=== PATIENT | female | born 1970 | race Hispanic/Latino ===

== ENCOUNTER 2018-11-20 03:20 | Emergency (ER) | payer BC, OTHER, SELFPAY ==
[2018-11-20 04:16] LABS: Absolute Lymphocytes (CBC) 3.8 K/uL (0.7-4.9); Basophils % 0.6 % (0-1.3); Eosinophils % 5.4 % (0-4.4); Hematocrit 35.1 % (36.0-45.0); MPV 9.5 fL (7.6-11.3); Monocytes % 8.4 % (3.3-12.3); RBC Red Blood Cell Count 3.87 M/uL (3.86-4.86)
[2018-11-20 04:27] LABS: BUN Blood Urea Nitrogen 9 mg/dL (7-18); Bicarbonate 28 mmol/L (21-32); Glucose Level 118 mg/dL (74-106); Potassium 3.3 mmol/L (3.5-5.1); Sodium Level 141 mmol/L (136-145); Troponin (Emerg Dept Use Only) < 0.02 ng/mL (0.0-0.045)
--- NOTE | 2018-11-20 05:30 | EKG ---
Test Date: 2018-11-20 Test Time: 04:04:24 [employer] Bar Cashier: ANGIE MEASUREMENT RESULTS: Intervals: Rate: 71 VT: 174 QRSD: 96 QT: 386 QTc: 419 [place]: P: 54 VT: 174 QRS: 48 T: 47 INTERPRETIVE STATEMENTS: Normal sinus rhythm Normal ECG Compared to ECG 11/15/2014 15:44:06 Sinus tachycardia no longer present Electronically Signed On 11-20-18 05:29:23 CDT by Charly Sears
--- NOTE | 2018-11-20 05:32 | ER ---
Nurse's Notes [facility] Name: Cary Fortune Age: 48 yrs Sex: Female : 1970 Arrival Date: 11/20/2018 Time: 03:21 Bed 15 Private MD: Robel Guerra E Diagnosis: Dyspnea Presentation: 11/20 03:32 Presenting complaint: Patient states: increased SOB, increased fatigue X3days. pt ak1 stated she has increased her days/activity at the gym. no resp distress noted at this time. Transition of care: patient was not received from another setting of care. Onset of symptoms is unknown. Risk Assessment: Do you want to hurt yourself or someone else? Patient reports no desire to harm self or others. Initial Sepsis Screen: Does the patient meet any 2 criteria? No. Patient's initial sepsis screen is negative. Does the patient have a suspected source of infection? No. Patient's initial sepsis screen is negative. Care prior to arrival: None. 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 - Social history:: Smoking status: Patient/guardian denies using tobacco. - Ebola Screening: : No symptoms or risks identified at this time. Screenin:35 Abuse screen: Denies threats or abuse. Denies injuries from another. Nutritional ak1 screening: No deficits noted. Tuberculosis screening: No symptoms or risk factors identified. Fall Risk None identified. Assessment: 03:34 General: Appears in no apparent distress. Behavior is calm, cooperative, appropriate ea for age. Pain: Denies pain. Neuro: Level of Consciousness is awake, alert, obeys commands, Oriented to person, place, time. Cardiovascular: Patient's skin is warm and dry. Respiratory: Airway is patent Respiratory effort is even, unlabored, Respiratory pattern is regular, symmetrical, Breath sounds are clear Parent/caregiver reports the patient having shortness of breath. Derm: Skin is pink, warm \T\ dry. Musculoskeletal: Circulation, motion, and sensation intact. 03:35 General: Appears in no apparent distress. Pain: Denies pain. Neuro: No deficits noted. ak1 Respiratory: Airway is patent Trachea midline Respiratory effort is even, unlabored. GI: No signs and/or symptoms were reported involving the gastrointestinal system. : No signs and/or symptoms were reported regarding the genitourinary system. EENT: No signs and/or symptoms were reported regarding the EENT system. Derm: No signs and/or symptoms reported regarding the dermatologic system. Musculoskeletal: No signs and/or symptoms reported regarding the musculoskeletal system. 04:53 Reassessment: Patient and/or family updated on plan of care and expected duration. Pain ea level reassessed. Patient is alert, oriented x 3, equal unlabored respirations, skin warm/dry/pink. 05:16 Reassessment: Patient and/or family updated on plan of care and expected duration. Pain ea level reassessed. Patient is alert, oriented x 3, equal unlabored respirations, skin warm/dry/pink. 05:58 Reassessment: Patient and/or family updated on plan of care and expected duration. Pain ea level reassessed. Patient is alert, oriented x 3, equal unlabored respirations, skin warm/dry/pink. Discharge instruction given to patient, verbalized the understanding of instruction. Pt left ED ambulatory, tolerating well. Vital Signs: 03:34 BP 144 / 80; Pulse 80; Resp 16; Temp 97.8; Pulse Ox 99% on R/A; Weight 74.84 kg (R); ak1 Height 5 ft. 6 in. (167.64 cm) (R); Pain 0/10; 04:54 BP 120 / 75; Pulse 78; Resp 18; Pulse Ox 98% ; ea 05:50 BP 119 / 60; Pulse 80; Resp 18; Temp 97.8; Pulse Ox 98% ; ea 03:34 Body Mass Index 26.63 (74.84 kg, 167.64 cm) ak1 ED Course: 03:21 Patient arrived in ED. am2 03:21 Robel Guerra MD is Private Physician. am2 03:33 Triage completed. ak1 03:34 Sarah Benz, RN is Primary Nurse. ea 03:34 Arm band placed on Patient placed in an exam room, on a stretcher, on pulse oximetry, ak1 Patient notified of wait time. 03:35 Travis Caba MD is Attending Physician. gs 03:35 Patient has correct armband on for positive identification. Placed in gown. Bed in low ak1 position. Call light in reach. Side rails up X 1. Pulse ox on. NIBP on. 03:50 Inserted saline lock: 20 gauge in right antecubital area, using aseptic technique. cc3 Blood collected. 04:04 XRAY Chest (1 view) In Process Unspecified. EDMS 05:50 IV discontinued, intact, bleeding controlled, No redness/swelling at site. Pressure ea dressing applied. 05:59 No provider procedures requiring assistance completed. ea Administered Medications: No medications were administered Outcome: 05:31 Discharge ordered by . 05:59 Discharged to home ambulatory. ea 05:59 Condition: stable 05:59 Discharge instructions given to patient, Instructed on discharge instructions, follow up and referral plans. medication usage, Demonstrated understanding of instructions, follow-up care, medications, Prescriptions given X 1. 06:01 Patient left the ED. ea Signatures: Dispatcher [employer] EDMS Yeimy Hernandez RN BRAD ak1 Heydi Toledo am2 Sarah Benz, Travis Sandoval RN, ea, MD MD Kanwal Carias cc3 Corrections: (The following items were deleted from the chart) 06:01 06:00 BP 119 / 60; Pulse 80bpm; Resp 18bpm; Pulse Ox 98%; Temp 97.8F; ea ea
--- NOTE | 2018-11-20 05:32 | EDPHYS ---
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 - Social history:: Smoking status: Patient/guardian denies using tobacco. - Ebola Screening: : No symptoms or risks identified at this time. Vital Signs: 03:34 BP 144 / 80; Pulse 80; Resp 16; Temp 97.8; Pulse Ox 99% on R/A; Weight 74.84 kg (R); ak1 Height 5 ft. 6 in. (167.64 cm) (R); Pain 0/10; 04:54 BP 120 / 75; Pulse 78; Resp 18; Pulse Ox 98% ; ea 05:50 BP 119 / 60; Pulse 80; Resp 18; Temp 97.8; Pulse Ox 98% ; ea 03:34 Body Mass Index 26.63 (74.84 kg, 167.64 cm) ak1 MDM: 03:36 Patient medically screened. 11/20 03:46 Order name: Basic Metabolic Panel; Complete Time: 05:15 11/20 03:46 Order name: CBC with Diff; Complete Time: 05:15 11/20 03:46 Order name: Troponin (emerg Dept Use Only); Complete Time: 05:15 11/20 03:46 Order name: XRAY Chest (1 view) 11/20 03:46 Order name: EKG; Complete Time: 03:48 11/20 03:46 Order name: Cardiac monitoring; Complete Time: 04:07 11/20 03:46 Order name: EKG - Nurse/Tech; Complete Time: 04:07 11/20 03:46 Order name: IV Saline Lock; Complete Time: 04:07 11/20 03:46 Order name: Labs collected and sent; Complete Time: 04: 11/20 03:46 Order name: O2 Per Protocol; Complete Time: 04: 11/20 03:46 Order name: O2 Sat Monitoring; Complete Time: 04: Administered Medications: No medications were administered Disposition: 11/20/18 05:31 Discharged to Home. Impression: Dyspnea. - Condition is Stable. - Discharge Instructions: Shortness of Breath, [id number]. - Prescriptions for Albuterol Sulfate 90 mcg/actuation - inhale 1-2 puff by INHALATION route every 4-6 hours; 1 Inhaler. - Medication Reconciliation Form, Thank You Letter, Antibiotic Education, Prescription Opioid Use form. - Follow up: Private Physician; When: 2 - 3 days; Reason: Re-evaluation by your physician. Signatures: Dispatcher [employer] EDYeimy Lyman RN RN ak1 Sarah Benz RN RN ea Starr, Gregory, MD MD Corrections: (The following items were deleted from the chart) 06:01 05:31 11/20/2018 05:31 Discharged to Home. Impression: Dyspnea. Condition is Stable. ea Forms are Medication Reconciliation Form, Thank You Letter, Antibiotic Education, Prescription Opioid Use. Follow up: Private Physician; When: 2 - 3 days; Reason: Re-evaluation by your physician.
--- NOTE | 2018-11-20 08:11 | RAD REPORT ---
EXAM DESCRIPTION: RAD - Chest Single View - 11/20/2018 4:05 am CLINICAL HISTORY: Shortness of breath COMPARISON: November 2014 TECHNIQUE: AP portable chest image was obtained 0404 hours . FINDINGS: Lungs are clear. Heart and vasculature are normal. No measurable pleural effusion and no p neumothorax. No acute bony abnormality seen. No acute aortic findings suspected. IMPRESSION: No acute cardiopulmonary process.
== END 2018-11-20 06:01 | disposition home or self-care (01) ==
LOC: ER 03:20
DX: R06.00 Dyspnea, unspecified (principal)
CPT/HCPCS: 36415; 71045; 80048; 84484; 85025; 93005; 99284

== ENCOUNTER 2022-12-19 12:35 | Emergency (ER) | payer OTHER ==
[2022-12-19] MEDS ORDERED: DOXYCYCLINE 100 MG CAP PO ONE (13:12)
[2022-12-19] MEDS ORDERED: LIDOCAINE 1% MPF 5 ML VIAL ONE (13:12)
[2022-12-19] MEDS ORDERED: LIDOCAINE 1% W/EPI 1:100,000 50 ML MDV ONE (13:17)
[2022-12-19] MEDS ORDERED: MUPIROCIN 2% OINT 22GM TUBE TOP ONE (13:18)
--- NOTE | 2022-12-19 18:50 | EDPHYS ---
Physician Documentation [facility] Name: Cary Fortune Age: 52 yrs Sex: Female : 1970 Arrival Date: 12/19/2022 Time: 12:35 Bed 12 Private MD: Mukesh [facility] ED Physician Marvin Fernandes HPI: 12/19 12:58 This 52 yrs old Female presents to ER via Ambulatory with complaints of spider ruddy bite on neck. 12:58 The patient presents with an abscess of the neck, The patient presents with cellulitis ruddy of the neck, the patient presents with a swollen area of the neck. Description: The affected area is small, confluent, erythematous, fluctuant. Onset: The symptoms/episode began/occurred 5 day(s) ago. Possible cause(s): unknown, spider bite. Associated signs and symptoms: The patient has no apparent associated signs or symptoms. Modifying factors: the symptoms are alleviated by remaining still, the symptoms are aggravated by pressure, squeezing the lesion and expressing the contents. Severity of symptoms: At their worst the symptoms were mild, in the emergency department the symptoms are unchanged. The patient has not experienced similar symptoms in the past. 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 - Social history:: Smoking status: Patient denies any tobacco usage or history of. ROS: 12:59 Constitutional: Negative for fever, chills, and weight loss, Eyes: Negative for injury, ruddy pain, redness, and discharge, ENT: Negative for injury, pain, and discharge, Neck: Negative for injury, pain, and swelling, Cardiovascular: Negative for chest pain, palpitations, and edema, Respiratory: Negative for shortness of breath, cough, wheezing, and pleuritic chest pain, Abdomen/GI: Negative for abdominal pain, nausea, vomiting, diarrhea, and constipation, Back: Negative for injury and pain, : Negative for injury, bleeding, discharge, and swelling, MS/Extremity: Negative for injury and deformity, Neuro: Negative for headache, weakness, numbness, tingling, and seizure, Psych: Negative for depression, anxiety, suicide ideation, homicidal ideation, and hallucinations, Allergy/Immunology: Negative for hives, rash, and allergies, Endocrine: Negative for neck swelling, polydipsia, polyuria, polyphagia, and marked weight changes, Hematologic/Lymphatic: Negative for swollen nodes, abnormal bleeding, and unusual bruising. 12:59 Skin: Positive for abscess, erythema, swelling. Exam: 12:59 Constitutional: This is a well developed, well nourished patient who is awake, alert, ruddy and in no acute distress. Head/Face: Normocephalic, atraumatic. Eyes: Pupils equal round and reactive to light, extra-ocular motions intact. Lids and lashes normal. Conjunctiva and sclera are non-icteric and not injected. Cornea within normal limits. Periorbital areas with no swelling, redness, or edema. ENT: Nares patent. No nasal discharge, no septal abnormalities noted. Tympanic membranes are normal and external auditory canals are clear. Oropharynx with no redness, swelling, or masses, exudates, or evidence of obstruction, uvula midline. Mucous membranes moist. Chest/axilla: Normal chest wall appearance and motion. Nontender with no deformity. No lesions are appreciated. Cardiovascular: Regular rate and rhythm with a normal S1 and S2. No gallops, murmurs, or rubs. Normal PMI, no JVD. No pulse deficits. Respiratory: Lungs have equal breath sounds bilaterally, clear to auscultation and percussion. No rales, rhonchi or wheezes noted. No increased work of breathing, no retractions or nasal flaring. Abdomen/GI: Soft, non-tender, with normal bowel sounds. No distension or tympany. No guarding or rebound. No evidence of tenderness throughout. Back: No spinal tenderness. No costovertebral tenderness. Full range of motion. MS/ Extremity: Pulses equal, no cyanosis. Neurovascular intact. Full, normal range of motion. Neuro: Awake and alert, GCS 15, oriented to person, place, time, and situation. Cranial nerves II-XII grossly intact. Motor strength 5/5 in all extremities. Sensory grossly intact. Cerebellar exam normal. Normal gait. Psych: Awake, alert, with orientation to person, place and time. Behavior, mood, and affect are within normal limits. 12:59 Neck: External neck: abscess, that is small, of the right sternocleidomastoid, cellulitis, that is mild, crepitus, is not appreciated, ecchymosis, is not appreciated, erythema, that is mild, ROM/movement: is normal, no acute changes, Meningeal signs: are not present, Kernig's sign is negative, Brudzinski's sign is negative. Vital Signs: 12:55 BP 144 / 84; Pulse 74; Resp 18; Temp 98.2(O); Pulse Ox 100% on R/A; Weight 81.65 kg; mb9 Height 5 ft. 5 in. ; 13:30 BP 113 / 57; Pulse 75; Resp 18; Pulse Ox 100% on R/A; eh3 12:55 Body Mass Index 29.95 (81.65 kg, 165.1 cm) mb9 Procedures: 13:07 I \T\ D: Incision and drainage was performed for an abscess of the right Prepped with [facility] Betadine, Anesthetized with 5 ml's 1% Lidocaine w/ Epi. Incised with #11 blade. Drained small amount Packed with iodoform gauze, Dressing: non-Adherent dressing, the patient tolerated the procedure well. MDM: 12:40 Patient medically screened. [facility] 13:00 Differential diagnosis: abscess, cellulitis, insect bite. Data reviewed: vital signs, [facility] nurses notes, lab test result(s), EKG, radiologic studies. Consideration of Admission/Observation Escalation of care including admission/observation considered. I considered the following discharge prescriptions or medication management in the emergency department Medications were administered in the Emergency Department. See MAR. Test considered but Not performed: Labs: no labs. Historians other than the Patient: none. Care significantly affected by the following chronic conditions: mvp. Counseling: I had a detailed discussion with the patient and/or guardian regarding: the historical points, exam findings, and any diagnostic results supporting the discharge/admit diagnosis, the need for outpatient follow up, for definitive care, a family practitioner, a general surgeon. 12/19 12:56 Order name: Dressing - Wound; Complete Time: 13:49 [facility] 12/19 12:56 Order name: Gloves, Sterile; Complete Time: 13:06 [facility] 12/19 12:56 Order name: Setup Suture Tray; Complete Time: 13:06 [facility] Administered Medications: 13:05 Drug: Doxycycline PO 200 mg Route: PO; [facility] 13:50 Follow up: Response: No adverse reaction [facility] 13:20 Drug: Lidocaine-Epinephrine Infiltration -1%: (1:100,000) 5 ml {Note: administered by [facility] Dr. Fernandes.} Volume: 20 ml; Route: Infiltration; 13:50 Follow up: Response: No adverse reaction [facility] 13:49 Drug: Mupirocin Topical Ointment 2 % 1 application Route: Topical; Site: affected area; [facility] 13:50 Follow up: Response: No adverse reaction [facility] Disposition Summary: 12/19/22 13:05 Discharge Ordered Location: Home [facility] Problem: new ruddy Symptoms: have improved ruddy Condition: Stable [facility] Diagnosis - Cutaneous abscess of neck [facility] Followup: [facility] - With: Oscar Mayorga DO - When: 1 - 2 days - Reason: Recheck today's complaints, Continuance of care, Re-evaluation by your physician Followup: [facility] - With: Sukh Farias MD - When: 2 - 3 days - Reason: Recheck today's complaints, Re-evaluation by your physician Discharge Instructions: - Discharge Summary Sheet [facility] - Skin Abscess ruddy - Incision and Drainage ruddy - Skin Abscess, [id number] [facility] - Incision and Drainage, Care After [facility] Forms: - Medication Reconciliation Form [facility] - Thank You Letter [facility] - Antibiotic Education [facility] - Prescription Opioid Use [facility] - Patient Portal Instructions [facility] - Work release form mb9 Prescriptions: - Doxycycline Hyclate 100 mg Oral Tablet - take 1 tablet by ORAL route every 12 hours; 20 tablet; Refills: 0, Product [facility] Selection Permitted - Bactrim DS 800-160 mg Oral Tablet - take 1 tablet by ORAL route every 12 hours for 7 days; 14 tablet; Refills: 0, [facility] Product Selection Permitted - promethazine 25 mg Oral Tablet - take 1 tablet by ORAL route every 6 hours As needed; 20 tablet; Refills: 0, [facility] Product Selection Permitted Signatures: Marvin Fernandes MD MD cha Hall, Erin RN RN 3 Bethanie Yu RN RN mb9
--- NOTE | 2022-12-19 18:50 | ER ---
Nurse's Notes [facility] Name: Cary Fortune Age: 52 yrs Sex: Female : 1970 Arrival Date: 12/19/2022 Time: 12:35 Bed 12 Private MD: Oscar Mayorga Diagnosis: Cutaneous abscess of neck Presentation: 12/19 12:55 Chief complaint: Patient states: "I got bit by a spider on Monday. I went to urgent 9 care and they sent me home with an antibiotic, Sulfa, and it's not working". Coronavirus screen: Vaccine status: Patient reports receiving the 2nd dose of the covid vaccine. Ebola Screen: No symptoms or risks identified at this time. Initial Sepsis Screen: Does the patient meet any 2 criteria? No. Patient's initial sepsis screen is negative. Does the patient have a suspected source of infection? No. Patient's initial sepsis screen is negative. Risk Assessment: Do you want to hurt yourself or someone else? Patient reports no desire to harm self or others. Onset of symptoms was 2022. 12:55 Method Of Arrival: Ambulatory mb9 12:55 Acuity: CARISSA 4 mb9 Triage Assessment: 12:56 General: Appears in no apparent distress. Behavior is calm, cooperative. Pain: mb9 Complains of pain in neck. Neuro: Mantilla Agitation-Sedation Scale (RASS): 0 - Alert and Calm Level of Consciousness is awake, alert, obeys commands, Oriented to person, place, time, situation, Appropriate for age. Respiratory: Airway is patent Respiratory effort is even, unlabored, Respiratory pattern is regular, symmetrical. GI: Reports diarrhea, nausea. : No signs and/or symptoms were reported regarding the genitourinary system. Derm: Skin is pink, warm \\T\\ dry. Abscess located on right side of neck is quarter sized, is red, is raised. Musculoskeletal: Range of motion: intact in all extremities. 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 - Social history:: Smoking status: Patient denies any tobacco usage or history of. Screenin:00 [facility] ED Fall Risk Assessment (Adult) Score/Fall Risk Level 0 - 2 = Low Risk. Abuse eh3 screen: Denies threats or abuse. Denies injuries from another. Nutritional screening: No deficits noted. Tuberculosis screening: No symptoms or risk factors identified. Assessment: 13:00 General: Appears in no apparent distress. uncomfortable, Behavior is calm, cooperative, eh3 appropriate for age. Pain: Complains of pain in neck. Neuro: Level of Consciousness is awake, alert, obeys commands, Oriented to person, place, time, situation. Cardiovascular: Capillary refill < 3 seconds Patient's skin is warm and dry. Respiratory: Airway is patent Respiratory effort is even, unlabored, Respiratory pattern is regular, symmetrical. GI: Abdomen is round non-distended, Reports diarrhea, nausea. Derm: Skin is healthy with good turgor, Wound noted right sternocleidomastoid. Musculoskeletal: Circulation, motion, and sensation intact. Range of motion: intact in all extremities. Vital Signs: 12:55 BP 144 / 84; Pulse 74; Resp 18; Temp 98.2(O); Pulse Ox 100% on R/A; Weight 81.65 kg; mb9 Height 5 ft. 5 in. ; 13:30 BP 113 / 57; Pulse 75; Resp 18; Pulse Ox 100% on R/A; eh3 12:55 Body Mass Index 29.95 (81.65 kg, 165.1 cm) mb9 ED Course: 12:35 Patient arrived in ED. am2 12:35 Oscar Mayorga DO is Private Physician. am2 12:40 Marvin Fernandes MD is Attending Physician. ruddy 12:54 Arm band placed on. mb9 12:56 Triage completed. mb9 12:57 Hannah London, BRAD is Primary Nurse. eh3 13:00 Patient has correct armband on for positive identification. Bed in low position. Call eh3 light in reach. Side rails up X2. Adult w/ patient. Provided Education on: N/A. Pulse ox on. NIBP on. 13:04 Oscar Mayorga DO is Referral Physician. ruddy 13:04 Sukh Farias MD is Referral Physician. ruddy 13:40 Assist provider with I \\T\\ D: of an abscess on right sternocleidomastoid Set up I\\T\\D tray. 3 Performed by Marvin Fernandes MD Culture sent to lab. Wound packed. iodoform gauze, Dressing with Bactroban and bandaid Patient tolerated well. 13:53 Patient did not have IV access during this emergency room visit. 3 Administered Medications: 13:05 Drug: Doxycycline PO 200 mg Route: PO; 3 13:50 Follow up: Response: No adverse reaction [facility] 13:20 Drug: Lidocaine-Epinephrine Infiltration -1%: (1:100,000) 5 ml {Note: administered by [address] Dr[address].} Volume: 20 ml; Route: Infiltration; 13:50 Follow up: Response: No adverse reaction [facility] 13:49 Drug: Mupirocin Topical Ointment 2 % 1 application Route: Topical; Site: affected area; [facility] 13:50 Follow up: Response: No adverse reaction [facility] Medication: 13:54 VIS not applicable for this client. 3 Outcome: 13:05 Discharge ordered by MD. fox 13:53 Discharged to home ambulatory, with family. 3 13:53 Condition: stable 13:53 Discharge instructions given to patient, family, Instructed on discharge instructions, follow up and referral plans. medication usage, wound care, Demonstrated understanding of instructions, follow-up care, medications, wound care, Prescriptions given X 3. 13:54 Patient left the ED. 3 Signatures: Marvin Fernandes MD MD cha Moreno, Amanda am2 Hall, Erin RN RN 3 Bethanie Yu RN RN mb9
--- OUTSIDE RECORDS SUMMARY | 2022-12-19 18:55 | XMS REPORT | Continuity of Care Document ---
:1970 Author Organization [facility] t Address [address] [place] [address] [place] [id number] Care Team Providers Name Role Phone Oscar Mayorga Primary Care Physician Oscar Mayorga Attending Clinician Unavailable DIMAS PALACIO Attending Clinician Unavailable DIMAS PALACIO Attending Clinician Unavailable ANNIE ROSE Attending Clinician Unavailable JOHANNY CARRERA Attending Clinician Unavailable Johanny Carrera MD Attending Clinician Doctor Unassigned, [place] Attending Clinician Unavailable VALE SCHWAB Attending Clinician Unavailable VALE SCHWAB Attending Clinician Unavailable Annie Rose PA-C Attending Clinician 2, [facility] Lab Attending Clinician Unavailable PADMINI LANDEROS Attending Clinician Unavailable HANNAH HARLEY Attending Clinician Unavailable Hannah Harley MD Attending Clinician [phone] KIRBY TREVINO Attending Clinician Unavailable Kirby Gutiérrez Attending Clinician Lab, [facility] Attending Clinician Unavailable Ligia Garcia Attending Clinician LIGIA NUÑEZ Attending Clinician Unavailable Mickey Riojas MD Attending Clinician MICKEY RIOJAS Attending Clinician Unavailable Visit, [facility] Nurse Attending Clinician Unavailable 1, [facility] Cardio Fac Room Attending Clinician Unavailable Curtis KELLEY, Jeremy Nascimento Attending Clinician [facility] Cardio Fac Attending Clinician Unavailable VALE SCHWAB Admitting Clinician Unavailable ANNIE ROSE Admitting Clinician Unavailable KIRBY TREVINO Admitting Clinician Unavailable Payers Payer Name Policy Type Policy Number Effective Date Expiration Date Arsenio PANTOJA [id number] 2022 00:00:00 Problems Condition Condition Condition Status Onset Resolution Last Treating Co mments Source Name Details Category Date Date Treatment Clinician Date Encounter Encounter Disease Active Overview: Univers for for 10-27 Formattin ity of screening screening 00:00: g of [place] colonoscop colonoscop 00 note Me dical y y might be Branch different from the original. 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 (mitral (mitral 06-25 ity of valve valve 00:00: [place] prolapse) prolapse) 00 [facility] Branch Chest Chest Disease Active 2015-06 Univers pain, pain, 06-25 ity of unspecifie unspecifie 00:[place] d d 00 Medical Branch Allergies, Adverse Reactions, Alerts Allergy Allergy Status Severity Reaction(s) Onset Inactive Treating Comm ents Source Name Type Date Date Clinician PENICILL DRUG Active Med Hives Univers IUM INGREDI 6-26 ity of NOTATUM 00:00: [place] ALLERGEN 00 Medical IC Branch EXTRACT Penicill Drug Active Hives Univers ium Allergy 6-26 ity of Notatum 00:00: [place] Allergen 00 Medical ic Branch Extract PENICILL DRUG Active Hives Univers IN INGREDI 5-15 ity of 00:00: [place] 00 Medical Branch Penicill Propensi Active Swelling Univ ers in ty to 5-15 ity of adverse 00:00: [place] reaction 00 Medical s Branch NO KNOWN Drug Active Univers ALLERGIE Class ity of S [facility] Social History Social Habit Start Date Stop Date Quantity Comments Source Gender identity Universit y of [facility] Sexual orientation Univer bethel [facility] Alcohol intake 2022-12-04 2022-12-04 .29 /d University of 00:00:00 00:00:00 [facility] History of Social 2022-12-02 2022-12-02 Univers ity of function 00:00:00 00:00:00 [facility] Exposure to 2022-10-17 2022-10-27 Not sure [facility] SARS-CoV-2 (event) 00:00:00 08:32:00 [facility] Alcohol Comment 2022-04-12 2022-04-12 socially Universit y of 00:00:00 00:00:00 [facility] Tobacco use and 2019-08-13 2019-08-13 Never used Universit y of exposure 00:00:00 00:00:00 [facility] Sex Ass[birth year] At [birth year] Universit y of 00:00:00 00:00:00 [facility] Smoking Status Start Date Stop Date Source Never smoked tobacco [facility] Medications Ordered Filled Start Stop Current Ordering Indication Dosage Frequency Signature Comments Components Source Medication Medication Date Date Medication? Clinician (SIG) Name Name ondansetron 2022- No 4mg 4 mg, Univ ers (ZOFRAN-ODT 12-15 Oral, ity of ) 04:45: 04:04 ONCE, 1 [place] disintegrat 00 :00 dose, On Medi yenny ing tablet Wed Branch 4 mg 12/14/22 at 2345, Routine sulfamethox 2022- No 1{tbl} 1 tablet, Univers azole-trime 12-15 Oral, ONCE i ty of thoprim 04:45: 04:04 NOW, 1 [place] (BACTRIM 00 :00 dose, On Medical DS) 800-160 Wed Branch mg per 12/14/22 at tablet 1 2345, tablet SLIM
Re ason for Anti-Infec tive: Documented Infection< br>Documen kellee Infection Site: Skin / Soft Tissue
Duration of Therapy: Other (see Comments) sulfamethox Yes [id number] 1{tbl} Take 1 Univers azole-trime 7-12 tablet by ity of thoprim 00:00: mouth [place] 800-160 mg 00 every 12 Medic al per tablet (twelve) Branc h hours. ibuprofen Yes [id number] 800mg Take 1 Univers 800 mg 7-12 tablet by ity of tablet 00:00: mouth [place] 00 every 8 Medical (eight) Branch hours as needed for Pain (scale 4-6). ondansetron 0 Yes [id number] 4mg Take 1 Univers (ZOFRAN) 4 7-12 tablet by ity of mg tablet 00:00: mouth [place] 00 every 8 Medical (eight) Branch hours as needed for Nausea and Vomiting (N/V). water for 2022- No PRN, Univers irrigation 12-02 Starting ity of irrigation 12:37: 13:24 on [place] solution 00 :47 12/02/22 at Medic al 0737, Branch Until Mon12/02/22 at 0824, Routine, Intra-op simethicone 2022- No PRN, Unive rs (GAS RELIEF 12-02 Starting ity of (SIMETHICON 12:34: 13:24 on Mon [place] as E)) 40 00 :47 12/02/22 at Medical mg/0.6 mL 0734, Branch drops Until Mon12/02/22 at 0824, Routine, Intra-op lactated 2022- No 1000mL at 42 Unive rs ringers IV 12-02 06-30 mL/hr, ity of infusion 11:30: 11:47 1,000 mL, [place] 1,000 mL 00 :00 IV Medical Infusion, Branch ONCE, 1 dose, On Mon12/02/22 at 0630, Routine, DSU Pre-op lactated 2022-0 2022- No 1000mL at 42 Unive rs ringers IV 12-02 06-30 mL/hr, ity of infusion 11:30: 11:47 1,000 mL, [place] 1,000 mL 00 :00 IV Medical Infusion, Branch ONCE, 1 dose, On Mon12/02/22 at 0630, Routine, DSU Pre-op famotidine 2022-0 Yes 20mg Take 1 Unive rs 20 mg 6-30 tablet by ity of tablet 09:21: mouth as [place] 13 needed. Medical Branch fexofenadin 2022-0 Yes 180mg Take 1 Uni vers e 180 mg 6-30 tablet by ity of tablet 09:21: mouth as [place] 13 needed. Medical Branch famotidine 2022-0 Yes 20mg Take 1 Unive rs 20 mg 6-30 tablet by ity of tablet 09:21: mouth as [place] 13 needed. Medical Branch fexofenadin 3-0 Yes 180mg Take 1 Uni vers e 180 mg 6-30 tablet by ity of tablet 09:21: mouth as [place] 13 needed. Medical Branch famotidine 3-0 Yes 20mg Take 1 Unive rs 20 mg 6-30 tablet by ity of tablet 09:21: mouth as [place] 13 needed. Medical Branch fexofenadin 3-0 Yes 180mg Take 1 Uni vers e 180 mg 6-30 tablet by ity of tablet 09:21: mouth as [place] 13 needed. Medical Branch famotidine 3-0 Yes 20mg Take 1 Unive rs 20 mg 6-30 tablet by ity of tablet 09:21: mouth as [place] 13 needed. Medical Branch fexofenadin 3-0 Yes 180mg Take 1 Uni vers e 180 mg 6-30 tablet by ity of tablet 09:21: mouth as [place] 13 needed. Medical Branch famotidine 3-0 Yes 20mg Take 1 Unive rs 20 mg 6-30 tablet by ity of tablet 09:21: mouth as [place] 13 needed. Medical Branch fexofenadin 2022-0 Yes 180mg Take 1 Uni vers e 180 mg 6-30 tablet by ity of tablet 09:21: mouth as [place] 13 needed. Medical Branch fexofenadin 3-0 Yes 180mg Take 1 Uni vers e 180 mg 6-26 tablet by ity of tablet 12:00: mouth as [place] 16 needed. Medical Branch famotidine 3-0 Yes 20mg Take 1 Unive rs 20 mg 6-26 tablet by ity of tablet 12:00: mouth as [place] 15 needed. Medical Branch EPINEPHrine 2022-0 Yes .3mg 0.3 mL by U nivers 0.3 mg/0.3 6-07 Intramuscu ity of mL 00:00: lar route [place] injection 00 as needed. Medi yenny Branch EPINEPHrine 3-0 Yes .3mg 0.3 mL by U nivers 0.3 mg/0.3 6-07 Intramuscu ity of mL 00:00: lar route [place] injection 00 as needed. Medi yenny Branch EPINEPHrine 3-0 Yes .3mg 0.3 mL by U nivers 0.3 mg/0.3 6-07 Intramuscu ity of mL 00:00: lar route [place] injection 00 as needed. [facility] yenny Branch EPINEPHrine 0 Yes .3mg 0.3 mL by U nivers 0.3 mg/0.3 6-07 Intramuscu ity of mL 00:00: lar route [place] injection 00 as needed. Medi yenny Branch EPINEPHrine 0 Yes .3mg 0.3 mL by U nivers 0.3 mg/0.3 6-07 Intramuscu ity of mL 00:00: lar route [place] injection 00 as needed. [facility] yenny Branch EPINEPHrine 0 Yes .3mg 0.3 mL by U nivers 0.3 mg/0.3 6-07 Intramuscu ity of mL 00:00: lar route [place] injection 00 as needed. [facility] yenny Branch fluticasone Yes 2{spray Use 2 Un edwina propionate 5-27 } Sprays in ity of 50 00:00: each [place] mcg/actuati 00 nostril in Me dical on nasal the Branch spray morning. fluticasone Yes 2{spray Use 2 Un edwina propionate 5-27 } Sprays in ity of 50 00:00: each [place] mcg/actuati 00 nostril in Me dical on nasal the Branch spray morning. fluticasone 0 Yes 2{spray Use 2 Un edwina propionate 5-27 } Sprays in ity of 50 00:00: each [place] mcg/actuati 00 nostril in Me dical on nasal the Branch spray morning. fluticasone 0 Yes 2{spray Use 2 Un edwina propionate 5-27 } Sprays in ity of 50 00:00: each [place] mcg/actuati 00 nostril in Me dical on nasal the Branch spray morning. fluticasone 0 Yes 2{spray Use 2 Un edwina propionate 5-27 } Sprays in ity of 50 00:00: each [place] mcg/actuati 00 nostril in Me dical on nasal the Branch spray morning. fluticasone 0 Yes 2{spray Use 2 Un edwina propionate 5-27 } Sprays in ity of 50 00:00: each [place] mcg/actuati 00 nostril in Me dical on nasal the Branch spray morning. sod 2022-0 2022- Yes 12{tbl} Take 12 Univer s sulf-pot 5-25 05-26 tablets by ity of chloride-ma 00:00: 04:59 mouth once [place] g sulf 00 :00 now for 1 Medical (SUTAB) dose. Branch 1.479-0.188 - 0.225 gram Tab gabapentin 2022- Yes [id number] 300mg Take 1 Univers 300 mg 5-15 08-14 capsule by ity of capsule 00:00: 04:59 mouth in [place] 00 :00 the [facility] and 1 capsule at noon and 1 capsule in the evening. Do all this for 90 days. gabapentin 2022-2022- Yes [id number] 300mg Take 1 Univers 300 mg 5-15 08-14 capsule by ity of capsule 00:00: 04:59 mouth in [place] 00 :00 [facility] and 1 capsule at noon and 1 capsule in the evening. Do all this for 90 days. gabapentin 2022-2022- Yes [id number] 300mg Take 1 Univers 300 mg 5-15 08-14 capsule by ity of capsule 00:00: 04:59 mouth in [place] 00 :00 [facility] and 1 capsule at noon and 1 capsule in the evening. Do all this for 90 days. gabapentin 2022-2022- Yes [id number] 300mg Take 1 Univers 300 mg 5-15 08-14 capsule by ity of capsule 00:00: 04:59 mouth in [place] 00 :00 [facility] and 1 capsule at noon and 1 capsule in the evening. Do all this for 90 days. gabapentin 2022-2022- Yes [id number] 300mg Take 1 Univers 300 mg 5-15 08-14 capsule by ity of capsule 00:00: 04:59 mouth in [place] 00 :00 [facility] and 1 capsule at noon and 1 capsule in the evening. Do all this for 90 days. gabapentin 2022-2022- Yes [id number] 300mg Take 1 Univers 300 mg 5-15 08-14 capsule by ity of capsule 00:00: 04:59 mouth in [place] 00 :00 [facility] and 1 capsule at noon and 1 capsule in the evening. Do all this for 90 days. gabapentin 2022-2022- Yes [id number] 300mg Take 1 Univers 300 mg 5-15 08-14 capsule by ity of capsule 00:00: 04:59 mouth in [place] 00 :00 the Medical morning Branch and 1 capsule at noon and 1 capsule in the evening. Do all this for 90 days. gabapentin 2023-0 2023- Yes [id number] 300mg Take 1 Univers 300 mg 5-15 08-14 capsule by ity of capsule 00:00: 04:59 mouth in [place] 00 :00 the Medical morning Branch and 1 capsule at noon and 1 capsule in the evening. Do all this for 90 days. gabapentin 2023-0 2023- Yes [id number] 300mg Take 1 Univers 300 mg 5-15 08-14 capsule by ity of capsule 00:00: 04:59 mouth in [place] 00 :00 the Medical morning Branch and 1 capsule at noon and 1 capsule in the evening. Do all this for 90 days. gabapentin 202-0 2023- Yes [id number] 300mg Take 1 Univers 300 mg 5-15 08-14 capsule by ity of capsule 00:00: 04:59 mouth in [place] 00 :00 [facility] [place] and 1 capsule at noon and 1 capsule in the evening. Do all this for 90 days. gabapentin 2022-0 2023- Yes [id number] 300mg Take 1 Univers 300 mg 5-15 08-14 capsule by ity of capsule 00:00: 04:59 mouth in [place] 00 :00 [facility] Branch and 1 capsule at noon and 1 capsule in the evening. Do all this for 90 days. gabapentin 2022-0 2023- Yes [id number] 300mg Take 1 Univers 300 mg 5-15 08-14 capsule by ity of capsule 00:00: 04:59 mouth in [place] 00 :00 the Medical morning Branch and 1 capsule at noon and 1 capsule in the evening. Do all this for 90 days. gabapentin 202-0 2023- Yes [id number] 300mg Take 1 Univers 300 mg 5-15 08-14 capsule by ity of capsule 00:00: 04:59 mouth in [place] 00 :00 the Medical morning Branch and 1 capsule at noon and 1 capsule in the evening. Do all this for 90 days. gabapentin 202-0 2023- Yes [id number] 300mg Take 1 Univers 300 mg 5-15 08-14 capsule by ity of capsule 00:00: 04:59 mouth in [place] 00 :00 the Medical morning Branch and 1 capsule at noon and 1 capsule in the evening. Do all this for 90 days. Fluocinolon 2023-0 Yes 5[drp] Place 5 U nivers e Acetonide 4-21 Drops in ity of Oil 0.01 % 00:00: [place] ears [place] otic drops 00 as needed. Med ical Branch Fluocinolon 3-0 Yes 5[drp] Place 5 U nivers e Acetonide 4-21 Drops in ity of Oil 0.01 % 00:00: [place] ears [place] otic drops 00 as needed. Med ical Branch Fluocinolon 2023-0 Yes 5[drp] Place 5 U nivers e Acetonide 4-21 Drops in ity of Oil 0.01 % 00:00: [place] ears [place] otic drops 00 as needed. Med ical Branch Fluocinolon 2023-0 Yes 5[drp] Place 5 U nivers e Acetonide 4-21 Drops in ity of Oil 0.01 % 00:00: [place] ears [place] otic drops 00 as needed. Med ical Branch Fluocinolon 3-0 Yes 5[drp] Place 5 U nivers e Acetonide 4-21 Drops in ity of Oil 0.01 % 00:00: [place] ears [place] otic drops 00 as needed. Med ical Branch Fluocinolon 2023-0 Yes 5[drp] Place 5 U nivers e Acetonide 4-21 Drops in ity of Oil 0.01 % 00:00: [place] otic drops 00 as needed. Med ical Branch amitriptyli 2022-0 Yes 25mg Take 1 Univ ers ne 25 mg 3-01 tablet by ity of tablet 00:00: mouth at [place] [address] bedtime. Medical Branch amitriptyli 2022-0 Yes 25mg Take 1 Univ ers ne 25 mg 3-01 tablet by ity of tablet 00:00: mouth at [place] [address] bedtime. Medical Branch amitriptyli 3-0 Yes 25mg Take 1 Univ ers ne 25 mg 3-01 tablet by ity of tablet 00:00: mouth at [place] [address] bedtime. Medical Branch amitriptyli 3-0 Yes 25mg Take 1 Univ ers ne 25 mg 3-01 tablet by ity of tablet 00:00: mouth at [place] [address] bedtime. Medical Branch amitriptyli 2022-0 Yes 25mg Take 1 Univ ers ne 25 mg 3-01 tablet by ity of tablet 00:00: mouth at [place] 00 bedtime. Medical Branch amitriptyli 0 Yes 25mg Take 1 Univ ers ne 25 mg 3-01 tablet by ity of tablet 00:00: mouth at [place] 00 bedtime. Medical Branch amitriptyli 2022-0 Yes 25mg Take 1 Univ ers ne 25 mg 3-01 tablet by ity of tablet 00:00: mouth at [place] 00 bedtime. Medical Branch amitriptyli 0 Yes 25mg Take 1 Univ ers ne 25 mg 3-01 tablet by ity of tablet 00:00: mouth at [place] 00 bedtime. Medical Branch amitriptyli 0 Yes 25mg Take 1 Univ ers ne 25 mg 3-01 tablet by ity of tablet 00:00: mouth at [place] 00 bedtime. Medical Branch amitriptyli 2022-0 2022- No 25mg Take 1 Uni vers ne 25 mg 3-01 06-30 tablet by ity o f tablet 00:00: 00:00 mouth at [place] 00 :00 bedtime. Medical Branch amitriptyli 2022-0 2022- No 25mg Take 1 Uni vers ne 25 mg 3-01 06-30 tablet by ity o f tablet 00:00: 00:00 mouth at [place] 00 :00 bedtime. Medical Branch metroNIDAZO 2021-06 Yes [id number] 500mg Take 1 Univers LE 500 mg 1-09 tablet by ity o f tablet 00:00: mouth [place] 00 every 12 Medical (twelve) Branch hours. metroNIDAZO 2021-06 Yes [id number] 500mg Take 1 Univers LE 500 mg 1-09 tablet by ity o f tablet 00:00: mouth [place] 00 every 12 Medical (twelve) Branch hours. metroNIDAZO 2021-06 Yes [id number] 500mg Take 1 Univers LE 500 mg 1-09 tablet by ity o f tablet 00:00: mouth [place] 00 every 12 Medical (twelve) Branch hours. metroNIDAZO 2021-06 Yes [id number] 500mg Take 1 Univers LE 500 mg 1-09 tablet by ity o f tablet 00:00: mouth [place] 00 every 12 Medical (twelve) Branch hours. metroNIDAZO 2021-06 Yes [id number] 500mg Take 1 Univers LE 500 mg 1-09 tablet by ity o f tablet 00:00: mouth [place] 00 every 12 Medical (twelve) Branch hours. metroNIDAZO 2021-06 Yes [id number] 500mg Take 1 Univers LE 500 mg 1-09 tablet by ity o f tablet 00:00: mouth [place] 00 every 12 Medical (twelve) Branch hours. metroNIDAZO 2021-06 Yes [id number] 500mg Take 1 Univers LE 500 mg 1-09 tablet by ity o f tablet 00:00: mouth [place] 00 every 12 Medical (twelve) Branch hours. metroNIDAZO 2021-06 Yes [id number] 500mg Take 1 Univers LE 500 mg 1-09 tablet by ity o f tablet 00:00: mouth [place] 00 every 12 Medical (twelve) Branch hours. metroNIDAZO 2021-06 Yes [id number] 500mg Take 1 Univers LE 500 mg 1-09 tablet by ity o f tablet 00:00: mouth [place] 00 every 12 Medical (twelve) Branch hours. metroNIDAZO 2021-06- No [id number] 500mg Take 1 Univers LE 500 mg 1-09 05-25 tablet by ity of tablet 00:00: 00:00 mouth [place] 00 :00 every 12 Medical (twelve) Branch hours. metroNIDAZO 2021-06- No [id number] 500mg Take 1 Univers LE 500 mg 1-09 05-25 tablet by ity of tablet 00:00: 00:00 mouth [place] 00 :00 every 12 Medical (twelve) Branch hours. metroNIDAZO 2021-06- No [id number] 500mg Take 1 Univers LE 500 mg 1-09 05-25 tablet by ity of tablet 00:00: 00:00 mouth [place] 00 :00 every 12 Medical (twelve) Branch hours. PARoxetine 2021-06 Yes [id number] 10mg Take 1 Univers (PAXIL) 10 1-08 tablet by ity of mg tablet 00:00: [place] 00 the Medical morning. Branch PARoxetine 2021-06 Yes [id number] 10mg Take 1 Univers (PAXIL) 10 1-08 tablet by ity of mg tablet 00:00: mouth [place] 00 the Medical morning. Branch PARoxetine 2021-06 Yes [id number] 10mg Take 1 Univers (PAXIL) 10 1-08 tablet by ity of mg tablet 00:00: mouth [place] 00 the Medical morning. Branch PARoxetine 2021-06 Yes [id number] 10mg Take 1 Univers (PAXIL) 10 1-08 tablet by ity of mg tablet 00:00: mouth [place] 00 the Medical morning. Branch PARoxetine 2021-06 Yes [id number] 10mg Take 1 Univers (PAXIL) 10 1-08 tablet by ity of mg tablet 00:00: mouth [place] 00 the Medical morning. Branch PARoxetine 2021-06 Yes [id number] 10mg Take 1 Univers (PAXIL) 10 1-08 tablet by ity of mg tablet 00:00: mouth [place] 00 the Medical morning. Branch PARoxetine 2021-06 Yes [id number] 10mg Take 1 Univers (PAXIL) 10 1-08 tablet by ity of mg tablet 00:00: [place] 00 the Medical morning. Branch PARoxetine 2021-06 Yes [id number] 10mg Take 1 Univers (PAXIL) 10 1-08 tablet by ity of mg tablet 00:00: [place] 00 the Medical morning. Branch PARoxetine 2021-06 Yes [id number] 10mg Take 1 Univers (PAXIL) 10 1-08 tablet by ity of mg tablet 00:00: [place] 00 the Medical morning. Branch PARoxetine 2021-06- No [id number] 10mg Take 1 Univers (PAXIL) 10 1-08 05-15 tablet by ity of mg tablet 00:00: 00:00 mouth in [place] 00 :00 the Medical morning. Branch PARoxetine 2021-06- No [id number] 10mg Take 1 Univers (PAXIL) 10 1-08 05-15 tablet by ity of mg tablet 00:00: 00:00 mouth in [place] 00 :00 the Medical morning. Branch PARoxetine 2021-06- No [id number] 10mg Take 1 Univers (PAXIL) 10 1-08 05-15 tablet by ity of mg tablet 00:00: 00:00 mouth in [place] 00 :00 the Medical morning. Branch iohexoL 2021- No [id number] 60mL 60 mL, Un edwina (OMNIPAQUE 7-30 07-30 Intravenou it y of 350 BULK-50 06:15: 05:56 s, ONCE, 1 [place] mL) 00 :00 dose, On Medical injection Sat Branch 60 mL 01/01/22 at 0115, Routine cefTRIAXone 2021- No 1000mg 1,000 mg, Univers (ROCEPHIN) 01-01 IV ity of 1,000 mg in 05:30: 06:35 Piggyback, [place] NaCl 0.9% 00 :39 ONCE, 1 Medical (NS) 50 mL dose, On Branc h MINI-BAG 01/01/22 at 0030, Administer over 30 Minutes, 50 mL
Reas on for Anti-Infec tive: Documented Infection< br>Documen kellee Infection Site: Urine<br&g t;Duration of Therapy: Other (see Comments) ibuprofen 2021- No 800mg 800 mg, Uni vers (IBU) 01-01 Oral, ity of tablet 800 03:45: 03:34 ONCE, 1 [place] as mg 00 :00 dose, On Medical Fri Branch 12/31/21 at 2245, SLIM ondansetron Yes [id number] 4mg Take 1 Univers 4 mg 7-30 tablet by ity of disintegrat 00:00: mouth [place] ing tablet 00 every 8 Medica l (eight) Branch hours as needed for Nausea and Vomiting (N/V). ondansetron 2021-0 Yes [id number] 4mg Take 1 Univers 4 mg 7-30 tablet by ity of disintegrat 00:00: mouth [place] ing tablet 00 every 8 Medica l (eight) Branch hours as needed for Nausea and Vomiting (N/V). ondansetron 2021-0 Yes [id number] 4mg Take 1 Univers 4 mg 7-30 tablet by ity of disintegrat 00:00: mouth [place] ing tablet 00 every 8 Medica l (eight) Branch hours as needed for Nausea and Vomiting (N/V). ondansetron 2021-0 Yes [id number] 4mg Take 1 Univers 4 mg 7-30 tablet by ity of disintegrat 00:00: mouth [place] ing tablet 00 every 8 Medica l (eight) Branch hours as needed for Nausea and Vomiting (N/V). ondansetron 2021-0 Yes [id number] 4mg Take 1 Univers 4 mg 7-30 tablet by ity of disintegrat 00:00: mouth [place] ing tablet 00 every 8 Medica l (eight) Branch hours as needed for Nausea and Vomiting (N/V). ondansetron 2-0 Yes [id number] 4mg Take 1 Univers 4 mg 7-30 tablet by ity of disintegrat 00:00: mouth [place] ing tablet 00 every 8 Medica l (eight) Branch hours as needed for Nausea and Vomiting (N/V). ondansetron 2-0 Yes [id number] 4mg Take 1 Univers 4 mg 7-30 tablet by ity of disintegrat 00:00: mouth [place] ing tablet 00 every 8 Medica l (eight) Branch hours as needed for Nausea and Vomiting (N/V). ondansetron 2-0 Yes [id number] 4mg Take 1 Univers 4 mg 7-30 tablet by ity of disintegrat 00:00: mouth [place] ing tablet 00 every 8 Medica l (eight) Branch hours as needed for Nausea and Vomiting (N/V). ondansetron 2-0 Yes [id number] 4mg Take 1 Univers 4 mg 7-30 tablet by ity of disintegrat 00:00: mouth [place] ing tablet 00 every 8 Medica l (eight) Branch hours as needed for Nausea and Vomiting (N/V). ondansetron 2-0 Yes [id number] 4mg Take 1 Univers 4 mg 7-30 tablet by ity of disintegrat 00:00: mouth [place] ing tablet 00 every 8 Medica l (eight) Branch hours as needed for Nausea and Vomiting (N/V). ondansetron 2-0 Yes [id number] 4mg Take 1 Univers 4 mg 7-30 tablet by ity of disintegrat 00:00: mouth [place] ing tablet 00 every 8 Medica l (eight) Branch hours as needed for Nausea and Vomiting (N/V). ondansetron 2022-0 Yes [id number] 4mg Take 1 Univers 4 mg 7-30 tablet by ity of disintegrat 00:00: mouth [place] ing tablet 00 every 8 Medica l (eight) Branch hours as needed for Nausea and Vomiting (N/V). ondansetron 2022-0 Yes [id number] 4mg Take 1 Univers 4 mg 7-30 tablet by ity of disintegrat 00:00: mouth [place] ing tablet 00 every 8 Medica l (eight) Branch hours as needed for Nausea and Vomiting (N/V). ondansetron 2-0 Yes [id number] 4mg Take 1 Univers 4 mg 7-30 tablet by ity of disintegrat 00:00: mouth [place] ing tablet 00 every 8 Medica l (eight) Branch hours as needed for Nausea and Vomiting (N/V). ondansetron 2-0 Yes [id number] 4mg Take 1 Univers 4 mg 7-30 tablet by ity of disintegrat 00:00: mouth [place] ing tablet 00 every 8 Medica l (eight) Branch hours as needed for Nausea and Vomiting (N/V). ondansetron 2-0 Yes [id number] 4mg Take 1 Univers 4 mg 7-30 tablet by ity of disintegrat 00:00: mouth [place] ing tablet 00 every 8 Medica l (eight) Branch hours as needed for Nausea and Vomiting (N/V). ondansetron 2-0 Yes [id number] 4mg Take 1 Univers 4 mg 7-30 tablet by ity of disintegrat 00:00: mouth [place] ing tablet 00 every 8 Medica l (eight) Branch hours as needed for Nausea and Vomiting (N/V). ondansetron 2-0 Yes [id number] 4mg Take 1 Univers 4 mg 7-30 tablet by ity of disintegrat 00:00: mouth [place] ing tablet 00 every 8 Medica l (eight) Branch hours as needed for Nausea and Vomiting (N/V). ondansetron 2-0 Yes [id number] 4mg Take 1 [facility] 4 mg 7-30 tablet by ity of disintegrat 00:00: mouth [place] ing tablet 00 every 8 Medica l (eight) Branch hours as needed for Nausea and Vomiting (N/V). ondansetron 2022-0 2023- No [id number] 4mg Take 1 [facility] 4 mg 7-30 05-25 tablet by ity [facility] disintegrat 00:00[place] :00 every 8 Medica l (eight) Branch hours as needed for Nausea and Vomiting (N/V). ondansetron 2022-0 2023- No [id number] 4mg Take 1 [facility] 4 mg 7-30 05-25 tablet by [facility] disintegrat 00:00[place] :00 every 8 Medica l (eight) Branch hours as needed for Nausea and Vomiting (N/V). ondansetron 2022- No [id number] 4mg Take 1 [facility] 4 mg 7-30 05-25 tablet by [facility] disintegrat 00:00: [place] 00 :00 every 8 Medica l (eight) Branch hours as needed for Nausea and Vomiting (N/V). cefdinir 2021- No [id number] 300mg Take 1 U n[facility] 300 mg 7-30 08-10 capsule by ity of capsule 00:00: 04:59 mouth in [place] 00 :00 the Medical morning Branch and 1 capsule in the evening. Do all this for 10 days. aspirin 81 2020-0 Yes 81mg Take 1 Unive rs mg EC 1-16 tablet by ity of tablet 00:00: mouth 00 daily. Medical Branch metoprolol 2020-0 Yes 25mg Take 1 Unive rs tartrate 25 1-16 tablet by ity of mg tablet 00:00: mouth 2 00 (two) Medical times Branch daily. nitroglycer 2020-[address] 1 Uni vers in 0.4 mg 1-16 tablet ity of sublingual 00:00: under the [place] tablet 00 tongue Medical every 5 Branch (five) minutes as needed for Chest pain. aspirin 81 2020-0 Yes 81mg Take 1 Unive rs mg EC 1-16 tablet by ity of tablet 00:00: mouth [place] 00 daily. Medical Branch metoprolol 2020-0 Yes 25mg Take 1 Unive rs tartrate 25 1-16 tablet by ity of mg tablet 00:00: mouth 2 [place] 00 (two) Medical times Branch daily. nitroglycer 2020-[address] 1 Uni vers in 0.4 mg 1-16 tablet ity of sublingual 00:00: under the [place] tablet 00 tongue Medical every 5 Branch (five) minutes as needed for Chest pain. aspirin 81 2020-0 Yes 81mg Take 1 Unive rs mg EC 1-16 tablet by ity of tablet 00:00: mouth [place] 00 daily. Medical Branch metoprolol 2020-0 Yes 25mg Take 1 Unive rs tartrate 25 1-16 tablet by ity of mg tablet 00:00: mouth 2 [place] 00 (two) Medical times Branch daily. nitroglycer 2020-[address] 1 Uni vers in 0.4 mg 1-16 tablet ity of sublingual 00:00: under the [place] tablet 00 tongue Medical every 5 Branch (five) minutes as needed for Chest pain. aspirin 81 2020-0 Yes 81mg Take 1 Unive rs mg EC 1-16 tablet by ity of tablet 00:00: mouth 00 daily. Medical Branch metoprolol 2020-0 Yes 25mg Take 1 Un[facility] rs tartrate 25 1-16 tablet by ity of mg tablet 00:00: mouth 2 (two) Medical times Branch daily. nitroglycer 2020-[address] 1 Uni vers in 0.4 mg 1-16 tablet ity of sublingual 00:00: under the [place] tablet 00 tongue Medical every 5 Branch (five) minutes as needed for Chest pain. aspirin 81 2020-0 Yes 81mg Take 1 Unive rs mg EC 1-16 tablet by ity of tablet 00:00: mouth daily. Medical Branch metoprolol 2020-0 Yes 25mg Take 1 Un[facility] rs tartrate 25 1-16 tablet by ity of mg tablet 00:00: mouth 2 (two) Medical times Branch daily. nitroglycer 2020-[address] 1 Uni vers in 0.4 mg 1-16 tablet ity of sublingual 00:00: under the [place] tablet 00 tongue Medical every 5 Branch (five) minutes as needed for Chest pain. aspirin 81 2020-0 Yes 81mg Take 1 Unive rs mg EC 1-16 tablet by ity of tablet 00:00: mouth daily. Medical Branch metoprolol 2020-0 Yes 25mg Take 1 Un[facility] rs tartrate 25 1-16 tablet by ity of mg tablet 00:00: mouth 2 (two) Medical times Branch daily. nitroglycer 2020-[address] 1 Uni vers in 0.4 mg 1-16 tablet ity of sublingual 00:00: under the [place] tablet 00 tongue Medical every 5 Branch (five) minutes as needed for Chest pain. aspirin 81 2020-0 Yes 81mg Take 1 Unive rs mg EC 1-16 tablet by ity of tablet 00:00: mouth daily. Medical Branch metoprolol 2020-0 Yes 25mg Take 1 Un[facility] rs tartrate 25 1-16 tablet by ity of mg tablet 00:00: mouth 2 (two) Medical times Branch daily. nitroglycer 2020-[address] 1 Uni vers in 0.4 mg 1-16 tablet ity of sublingual 00:00: under the [place] tablet 00 tongue Medical every 5 Branch (five) minutes as needed for Chest pain. aspirin 81 2020-0 Yes 81mg Take 1 Un[facility] rs mg EC 1-16 tablet by ity of tablet 00:00: mouth 00 daily. Medical Branch metoprolol 2020-0 Yes 25mg Take 1 Un[facility] rs tartrate 25 1-16 tablet by ity of mg tablet 00:00: mouth (two) Medical times Branch daily. nitroglycer 2020-[address] 1 Uni vers in 0.4 mg 1-16 tablet ity of sublingual 00:00: under the [place] tablet 00 tongue Medical every 5 Branch (five) minutes as needed for Chest pain. aspirin 81 2020-0 Yes 81mg Take 1 [facility] rs mg EC 1-16 tablet by ity of tablet 00:00: mouth daily. Medical Branch metoprolol 2020-0 Yes 25mg Take 1 Un[facility] rs tartrate 25 1-16 tablet by ity of mg tablet 00:00: mouth (two) Medical times Branch daily. nitroglycer 2020-[address] 1 [facility] vers in 0.4 mg 1-16 tablet ity of sublingual 00:00: under the [place] tablet 00 tongue Medical every 5 Branch (five) minutes as needed for Chest pain. aspirin 81 2020-0 Yes 81mg Take 1 Un[facility] rs mg EC 1-16 tablet by ity of tablet 00:00: mouth daily. Medical Branch metoprolol 2020-0 Yes 25mg Take 1 Un[facility] rs tartrate 25 1-16 tablet by ity of mg tablet 00:00: mouth (two) Medical times Branch daily. nitroglycer 2020-[address] 1 [facility] vers in 0.4 mg 1-16 tablet ity of sublingual 00:00: under the [place] tablet 00 tongue Medical every 5 Branch (five) minutes as needed for Chest pain. aspirin 81 2020-0 Yes 81mg Take 1 [facility] rs mg EC 1-16 tablet by ity of tablet 00:00: mouth 00 daily. Medical Branch metoprolol 2020-0 Yes 25mg Take 1 Un[facility] rs tartrate 25 1-16 tablet by ity of mg tablet 00:00: mouth 2 (two) Medical times Branch daily. nitroglycer 2020-[address] 1 [facility] vers in 0.4 mg 1-16 tablet ity of sublingual 00:00: under the [place] tablet 00 tongue Medical every 5 Branch (five) minutes as needed for Chest pain. aspirin 81 2020-0 Yes 81mg Take 1 [facility] rs mg EC 1-16 tablet by ity of tablet 00:00: mouth 00 daily. Medical Branch metoprolol 2020-0 Yes 25mg Take 1 [facility] rs tartrate 25 1-16 tablet by ity of mg tablet 00:00: mouth (two) Medical times Branch daily. nitroglycer 2020-[address] 1 [facility] vers in 0.4 mg 1-16 tablet ity of sublingual 00:00: under the [place] tablet 00 tongue Medical every 5 Branch (five) minutes as needed for Chest pain. aspirin 81 2020-0 Yes 81mg Take 1 [facility] rs mg EC 1-16 tablet by ity of tablet 00:00: mouth 00 daily. Medical Branch metoprolol 2020-0 Yes 25mg Take 1 [facility] rs tartrate 25 1-16 tablet by ity of mg tablet 00:00: mouth (two) Medical times Branch daily. nitroglycer 2020-[address] 1 [facility] vers in 0.4 mg 1-16 tablet ity of sublingual 00:00: under the [place] tablet 00 tongue Medical every 5 Branch (five) minutes as needed for Chest pain. aspirin 81 2020-0 Yes 81mg Take 1 Unive rs mg EC 1-16 tablet by ity of tablet 00:00: mouth [place] 00 daily. Medical Branch aspirin 81 2020-0 Yes 81mg Take 1 Un[facility] rs mg EC 1-16 tablet by ity of tablet 00:00: mouth [place] 00 daily. Medical Branch metoprolol 2020-0 Yes 25mg Take 1 Unive rs tartrate 25 1-16 tablet by ity of mg tablet 00:00: mouth 2 (two) Medical times Branch daily. nitroglycer 2020-[address] 1 [facility] vers in 0.4 mg 1-16 tablet ity of sublingual 00:00: under the [place] tablet 00 tongue Medical every 5 Branch (five) minutes as needed for Chest pain. metoprolol 2020-0 Yes 25mg Take 1 Un[facility] rs tartrate 25 1-16 tablet by ity of mg tablet 00:00: mouth 2 (two) Medical times Branch daily. nitroglycer 2020-[address] 1 [facility] vers in 0.4 mg 1-16 tablet ity of sublingual 00:00: under the [place] tablet 00 tongue Medical every 5 Branch (five) minutes as needed for Chest pain. nitroglycer 2020-[address] 1 [facility] vers in 0.4 mg 1-16 tablet ity of sublingual 00:00: under the [place] tablet 00 tongue Medical every 5 Branch (five) minutes as needed for Chest pain. nitroglycer 2020-[address] 1 [facility] vers in 0.4 mg 1-16 tablet ity of sublingual 00:00: under the [place] tablet 00 tongue Medical every 5 Branch (five) minutes as needed for Chest pain. nitroglycer 2020-[address] 1 [facility] vers in 0.4 mg 1-16 tablet ity of sublingual 00:00: under the [place] tablet 00 tongue Medical every 5 Branch (five) minutes as needed for Chest pain. nitroglycer 2020-[address] 1 [facility] vers in 0.4 mg 1-16 tablet ity of sublingual 00:00: under the [place] tablet 00 tongue Medical every 5 Branch (five) minutes as needed for Chest pain. nitroglycer 2020-[address] 1 [facility] vers in 0.4 mg 1-16 tablet ity of sublingual 00:00: under the [place] tablet 00 tongue Medical every 5 Branch (five) minutes as needed for Chest pain. aspirin 81 2020-0 Yes 81mg Take 1 [facility] rs mg EC 1-16 tablet by ity of tablet 00:00: mouth daily. Medical Branch metoprolol 2020-0 Yes 25mg Take 1 Un[facility] rs tartrate 25 1-16 tablet by ity of mg tablet 00:00: mouth 2 (two) Medical times Branch daily. nitroglycer 2020-[address] 1 [facility] vers in 0.4 mg 1-16 tablet ity of sublingual 00:00: under the [place] tablet 00 tongue Medical every 5 Branch (five) minutes as needed for Chest pain. aspirin 81 2020-0 Yes 81mg Take 1 Unive rs mg EC 1-16 tablet by ity of tablet 00:00: mouth [place] 00 daily. Medical Branch metoprolol 2020-0 Yes 25mg Take 1 Unive rs tartrate 25 1-16 tablet by ity of mg tablet 00:00: mouth 2 (two) Medical times Branch daily. nitroglycer 2020-[address] 1 [facility] vers in 0.4 mg 1-16 tablet ity of sublingual 00:00: under the [place] tablet 00 tongue Medical every 5 Branch (five) minutes as needed for Chest pain. aspirin 81 2020-0 Yes 81mg Take 1 Unive rs mg EC 1-16 tablet by ity of tablet 00:00: mouth [place] 00 daily. Medical Branch metoprolol 2020-0 Yes 25mg Take 1 Unive rs tartrate 25 1-16 tablet by ity of mg tablet 00:00: mouth (two) Medical times Branch daily. nitroglycer 2020-[address] 1 Uni vers in 0.4 mg 1-16 tablet ity of sublingual 00:00: under the [place] tablet 00 tongue Medical every 5 Branch (five) minutes as needed for Chest pain. aspirin 81 2020-0 Yes 81mg Take 1 Un[facility] rs mg EC 1-16 tablet by ity of tablet 00:00: mouth 00 daily. Medical Branch metoprolol 2020-0 Yes 25mg Take 1 Unive rs tartrate 25 1-16 tablet by ity of mg tablet 00:00: mouth (two) Medical times Branch daily. nitroglycer 2020-[address] 1 Uni vers in 0.4 mg 1-16 tablet ity of sublingual 00:00: under the [place] tablet 00 tongue Medical every 5 Branch (five) minutes as needed for Chest pain. aspirin 81 2020-0 Yes 81mg Take 1 Unive rs mg EC 1-16 tablet by ity of tablet 00:00: mouth 00 daily. Medical Branch metoprolol 2020-0 Yes 25mg Take 1 Unive rs tartrate 25 1-16 tablet by ity of mg tablet 00:00: mouth 2 (two) Medical times Branch daily. nitroglycer 2020-[address] 1 Uni vers in 0.4 mg 1-16 tablet ity of sublingual 00:00: under the [place] tablet 00 tongue Medical every 5 Branch (five) minutes as needed for Chest pain. aspirin 81 2020-0 Yes 81mg Take 1 Unive rs mg EC 1-16 tablet by ity of tablet 00:00: mouth [place] 00 daily. Medical Branch metoprolol 2020-0 Yes 25mg Take 1 Unive rs tartrate 25 1-16 tablet by ity of mg tablet 00:00: mouth 2 [place] 00 (two) Medical times Branch daily. nitroglycer 2020-[address] 1 Uni vers in 0.4 mg 1-16 tablet ity of sublingual 00:00: under the [place] tablet 00 tongue Medical every 5 Branch (five) minutes as needed for Chest pain. aspirin 81 2020-0 Yes 81mg Take 1 Unive rs mg EC 1-16 tablet by ity of tablet 00:00: mouth [place] 00 daily. Medical Branch metoprolol 2020-0 Yes 25mg Take 1 Unive rs tartrate 25 1-16 tablet by ity of mg tablet 00:00: mouth 2 [place] (two) Medical times Branch daily. nitroglycer 2020-[address] 1 Uni vers in 0.4 mg 1-16 tablet ity of sublingual 00:00: under the [place] tablet 00 tongue Medical every 5 Branch (five) minutes as needed for Chest pain. aspirin 81 2020-0 Yes 81mg Take 1 Unive rs mg EC 1-16 tablet by ity of tablet 00:00: mouth [place] 00 daily. Medical Branch metoprolol 2020-0 Yes 25mg Take 1 Unive rs tartrate 25 1-16 tablet by ity of mg tablet 00:00: mouth 2 [place] 00 (two) Medical times Branch daily. nitroglycer 2020-[address] 1 Uni vers in 0.4 mg 1-16 tablet ity of sublingual 00:00: under the [place] tablet 00 tongue Medical every 5 Branch (five) minutes as needed for Chest pain. aspirin 81 2020-0 Yes 81mg Take 1 Unive rs mg EC 1-16 tablet by ity of tablet 00:00: mouth [place] 00 daily. Medical Branch metoprolol 2020-0 Yes 25mg Take 1 Unive rs tartrate 25 1-16 tablet by ity of mg tablet 00:00: mouth (two) Medical times Branch daily. nitroglycer 2020-[address] 1 Uni vers in 0.4 mg 1-16 tablet ity of sublingual 00:00: under the [place] tablet 00 tongue Medical every 5 Branch (five) minutes as needed for Chest pain. aspirin 81 2020-0 Yes 81mg Take 1 Unive rs mg EC 1-16 tablet by ity of tablet 00:00: mouth 00 daily. Medical Branch metoprolol 2020-0 Yes 25mg Take 1 Unive rs tartrate 25 1-16 tablet by ity of mg tablet 00:00: mouth 2 (two) Medical times Branch daily. nitroglycer 2020-[address] 1 Uni vers in 0.4 mg 1-16 tablet ity of sublingual 00:00: under the [place] tablet 00 tongue Medical every 5 Branch (five) minutes as needed for Chest pain. aspirin 81 2020-0 Yes 81mg Take 1 Unive rs mg EC 1-16 tablet by ity of tablet 00:00: mouth daily. Medical Branch metoprolol 2020-0 Yes 25mg Take 1 Unive rs tartrate 25 1-16 tablet by ity of mg tablet 00:00: mouth (two) Medical times Branch daily. nitroglycer 2020-[address] 1 Uni vers in 0.4 mg 1-16 tablet ity of sublingual 00:00: under the [place] tablet 00 tongue Medical every 5 Branch (five) minutes as needed for Chest pain. aspirin 81 2020-0 Yes 81mg Take 1 Unive rs mg EC 1-16 tablet by ity of tablet 00:00: mouth daily. Medical Branch metoprolol 2020-0 Yes 25mg Take 1 Unive rs tartrate 25 1-16 tablet by ity of mg tablet 00:00: mouth (two) Medical times Branch daily. nitroglycer 2020-[address] 1 Uni vers in 0.4 mg 1-16 tablet ity of sublingual 00:00: under the [place] tablet 00 tongue Medical every 5 Branch (five) minutes as needed for Chest pain. nitroglycer 2020-0 2023- No .4mg Place 1 Un [place] in 0.4 mg 1-16 06-30 tablet ity of sublingual 00:00: 00:00 under the [place] tablet 00 :00 tongue Medical every 5 Branch (five) minutes as needed for Chest pain. nitroglycer 2019-2022- No .4mg Place 1 Un [place] in 0.4 mg -16 06-30 tablet ity of sublingual 00:00: 00:00 under the [place] tablet 00 :00 tongue Medical every 5 Branch (five) minutes as needed for Chest pain. aspirin 81 2022- No 81mg Take 1 Univ ers mg EC 1-16 05-25 tablet by ity of tablet 00:00: 00:00 mouth [place] 00 :00 daily. Medical Branch metoprolol 2022- No 25mg Take 1 Univ ers tartrate 25 1-16 05-25 tablet by it y of mg tablet 00:00: 00:00 mouth 2 [place] :[place] (two) Medical times Branch daily. aspirin 81 2019-2022- No 81mg Take 1 Univ ers mg EC 1-16 05-25 tablet by ity of tablet 00:00: 00:00 mouth [place] 00 :00 daily. Medical Branch metoprolol 2022- No 25mg Take 1 Univ ers tartrate 25 1-16 05-25 tablet by it y of mg tablet 00:00: 00:00 mouth 2 [place] 00 :00 (two) Medical times Branch daily. aspirin 81 2022- No 81mg Take 1 Univ ers mg EC 1-16 05-25 tablet by ity of tablet 00:00: 00:00 mouth [place] 00 :00 daily. Medical Branch metoprolol 2022- No 25mg Take 1 Univ ers tartrate 25 1-16 05-25 tablet by it y of mg tablet 00:00: 00:00 mouth 2 [place] 00 :[place] (two) Medical times Branch daily. No known No Univers medications ity [facility] No known No Univers medications ity [facility] No known No Univers medications ity [facility] No known No Univers medications [facility] Immunizations Ordered Filled Immunization Date Status Comments [facility] e Immunization Name Name Influenza Virus 2022-03-12 Completed Universit y of Vaccine 00:00:00 [facility] Influenza Virus 2022-03-12 Completed Universit y of Vaccine 00:00:00 [place] [facility] Influenza Virus 2022-03-12 Completed Universit y of Vaccine 00:00:00 [facility] Branch Influenza Virus 2022-03-12 Completed Universit y of Vaccine 00:00:00 [place] [facility] Influenza Virus 2022-03-12 Completed Universit y of Vaccine 00:00:00 [place] [facility] Branch Influenza Virus 2022-03-12 Completed Universit y of Vaccine 00:00:00 [place] [facility] Branch Influenza Virus 2022-03-12 Completed Universit y of Vaccine 00:00:00 [place] [facility] Branch Influenza Virus 2022-03-12 Completed Universit y of Vaccine 00:00:00 [place] [facility] Branch Influenza Virus 2022-03-12 Completed Universit y of Vaccine 00:00:00 [facility] Branch Influenza Virus 2022-03-12 Completed Universit y of Vaccine 00:00:00 [place] [facility] Branch Influenza Virus 2022-03-12 Completed Universit y of Vaccine 00:00:00 [place] [facility] Branch Influenza Virus 2022-03-12 Completed Universit y of Vaccine 00:00:00 [facility] Branch Influenza Virus 2022-03-12 Completed Universit y of Vaccine 00:00:00 [place] [facility] Branch Influenza Virus 2022-03-12 Completed Universit y of Vaccine 00:00:00 [facility] Branch Influenza Virus 2022-03-12 Completed Universit y of Vaccine 00:00:00 [place] [facility] Branch Influenza Virus 2022-03-12 Completed Universit y of Vaccine 00:00:00 [place] [facility] Branch Influenza Virus 2022-03-12 Completed Universit y of Vaccine 00:00:00 [facility] Branch Influenza Virus 2022-03-12 Completed Universit y of Vaccine 00:00:00 [place] [facility] Branch Influenza Virus 2022-03-12 Completed Universit y of Vaccine 00:00:00 [place] [facility] Branch Influenza Virus 2022-03-12 Completed Universit y of Vaccine 00:00:00 [place] [facility] Branch Influenza Virus 2022-03-12 Completed Universit y of Vaccine 00:00:00 [place] [facility] Branch Influenza Virus 2022-03-12 Completed Universit y of Vaccine 00:00:00 [place] [facility] Influenza Virus 2022-03-12 Completed Universit y of Vaccine 00:00:00 [place] [facility] Branch Influenza Virus 2022-03-12 Completed Universit y of Vaccine 00:00:00 [place] [facility] Influenza Virus 2022-03-12 Completed Universit y of Vaccine 00:00:00 [place] [facility] Branch Influenza Virus 2019-04-05 Completed Universit y of Vaccine 00:00:00 [facility] Influenza Virus 2019-04-05 Completed Universit y of Vaccine 00:00:00 [facility] Influenza Virus 2019-04-05 Completed Universit y of Vaccine 00:00:00 [facility] Influenza Virus 2019-04-05 Completed Universit y of Vaccine 00:00:00 [facility] Influenza Virus 2019-04-05 Completed Universit y of Vaccine 00:00:00 [facility] Influenza Virus 2019-04-05 Completed Universit y of Vaccine 00:00:00 [facility] Influenza Virus 2019-04-05 Completed Universit y of Vaccine 00:00:00 [facility] Influenza Virus 2019-04-05 Completed Universit y of Vaccine 00:00:00 [facility] Influenza Virus 2019-04-05 Completed Universit y of Vaccine 00:00:00 [facility] Influenza Virus 2019-04-05 Completed Universit y of Vaccine 00:00:00 [facility] Influenza Virus 2019-04-05 Completed Universit y of Vaccine 00:00:00 [facility] Influenza Virus 2019-04-05 Completed Universit y of Vaccine 00:00:00 [facility] Influenza Virus 2019-04-05 Completed Universit y of Vaccine 00:00:00 [facility] Influenza Virus 2019-04-05 Completed Universit y of Vaccine 00:00:00 [facility] Influenza Virus 2019-04-05 Completed Universit y of Vaccine 00:00:00 [facility] Influenza Virus 2019-04-05 Completed Universit y of Vaccine 00:00:00 [facility] Influenza Virus 2019-04-05 Completed Universit y of Vaccine 00:00:00 [facility] Influenza Virus 2019-04-05 Completed Universit y of Vaccine 00:00:00 [facility] Influenza Virus 2019-04-05 Completed Universit y of Vaccine 00:00:00 [facility] Influenza Virus 2019-04-05 Completed Universit y of Vaccine 00:00:00 [facility] Influenza Virus 2019-04-05 Completed Universit y of Vaccine 00:00:00 [facility] Influenza Virus 2019-04-05 Completed Universit y of Vaccine 00:00:00 [facility] Influenza Virus 2019-04-05 Completed Universit y of Vaccine 00:00:00 [facility] Influenza Virus 2019-04-05 Completed Universit y of Vaccine 00:00:00 [facility] Influenza Virus 2019-04-05 Completed Universit y of Vaccine 00:00:00 [facility] Influenza Virus 2019-04-05 Completed Universit y of Vaccine 00:00:00 [facility] Influenza Virus 2019-04-05 Completed Universit y of Vaccine 00:00:00 [facility] Influenza Virus 2019-04-05 Completed Universit y of Vaccine 00:00:00 [facility] Influenza Virus 2019-04-05 Completed Universit y of Vaccine 00:00:00 [facility] Influenza Virus 2019-04-05 Completed Universit y of Vaccine 00:00:00 [facility] Influenza Virus 2019-04-05 Completed Universit y of Vaccine 00:00:00 [facility] Influenza Virus 2019-04-05 Completed Universit y of Vaccine 00:00:00 [facility] Influenza Virus 2019-04-05 Completed Universit y of Vaccine 00:00:00 [facility] Influenza Virus 2019-04-05 Completed Universit y of Vaccine 00:00:00 [facility] Influenza Virus 2019-04-05 Completed Universit y of Vaccine 00:00:00 [facility] Influenza Virus 2019-04-05 Completed Universit y of Vaccine 00:00:00 [facility] Influenza Virus 2019-04-05 Completed Universit y of Vaccine 00:00:00 [facility] Influenza Virus 2019-04-05 Completed Universit y of Vaccine 00:00:00 [facility] Influenza Virus 2019-04-05 Completed Universit y of Vaccine 00:00:00 [facility] Influenza Virus 2019-04-05 Completed Universit y of Vaccine 00:00:00 [facility] Vital Signs Vital Name Observation Time Observation Value Comments Source Systolic blood 2022-12-15 02:55:00 146 mm[Hg] Univer sity of pressure [facility] Diastolic blood 2022-12-15 02:55:00 88 mm[Hg] Unive rsity of pressure [facility] Heart rate 2022-12-15 02:55:00 99 /min [facility] Body temperature 2022-12-15 02:55:00 37 Daniela Univ ersity of [facility] Respiratory rate 2022-12-15 02:55:00 16 /[facility] 2022-12-15 02:55:00 167.6 cm [facility] [place] [facility] Body weight 2022-12-15 02:55:00 81.647 kg [facility] [place] [facility] BMI 2022-12-15 02:55:00 29.05 kg/m2 [facility] [place] [facility] Oxygen saturation in 2022-12-15 02:55:00 96 /min [facility] Arterial blood by [facility] Pulse oximetry Branch Systolic blood 2022-12-02 13:54:00 131 mm[Hg] Univer sity of pressure [place] [facility] Diastolic blood 2022-12-02 13:54:00 75 mm[Hg] Unive rsity of [facility] Respiratory rate 2022-12-02 13:54:00 13 /min [facility] Oxygen saturation in 2022-12-02 13:54:00 98 /min University of Arterial blood by [facility] Pulse oximetry Branch Heart rate 2022-12-02 13:53:00 63 /min [facility] [place] [facility] Body temperature 2022-12-02 13:23:00 35.78 Daniela [facility] [place] [facility] Body height 2022-11-28 17:00:00 167.6 cm [facility] Body weight 2022-11-28 17:00:00 79.379 kg [facility] BMI 2022-11-28 17:00:00 28.25 kg/m2 [facility] Heart rate 2022-12-02 13:27:00 75 /min [facility] Oxygen saturation in 2022-12-02 13:27:00 97 /min University of Arterial blood by [facility] Pulse oximetry Branch Respiratory rate 2022-12-02 13:26:00 15 /min [facility] [place] [facility] Systolic blood 2022-12-02 13:23:00 123 mm[Hg] Univer sity of [facility] Diastolic blood 2022-12-02 13:23:00 89 mm[Hg] Unive rs[facility] Body temperature 2022-12-02 13:23:00 35.78 Daniela [facility] [place] [facility] Body height 2022-11-28 17:00:00 167.6 cm [facility] Body weight 2022-11-28 17:00:00 79.379 kg Universi ty of [facility] BMI 2022-11-28 17:00:00 28.25 kg/m2 Universi ty of [facility] Branch Systolic blood 2022-10-27 13:46:00 129 mm[Hg] Univer sity of pressure [facility] Diastolic blood 2022-10-27 13:46:00 83 mm[Hg] Unive rsity of pressure [facility] Heart rate 2022-10-27 13:46:00 82 /min Universi ty of [facility] Body temperature 2022-10-27 13:46:00 36.67 Daniela Univ ersity of [facility] Body height 2022-10-27 13:46:00 167.6 cm Universi ty of [facility] Body weight 2022-10-27 13:46:00 81.92 kg Universi ty of [facility] BMI 2022-10-27 13:46:00 29.15 kg/m2 Universi ty of [facility] Oxygen saturation in 2022-10-27 13:46:00 96 /min [facility] Arterial blood by [facility] Pulse oximetry Branch Systolic blood 2022-10-17 13:30:00 124 mm[Hg] Univer sity of pressure [facility] Diastolic blood 2022-10-17 13:30:00 71 mm[Hg] Unive rsity of pressure [facility] Heart rate 2022-10-17 13:30:00 70 /min Universi ty of [facility] Body temperature 2022-10-17 13:30:00 36.67 Daniela Univ ersity of [facility] Respiratory rate 2022-10-17 13:30:00 18 /min Univ ersity of [facility] Body height 2022-10-17 13:30:00 167.6 cm Universi ty of [facility] Body weight 2022-10-17 13:30:00 82.101 kg Universi ty of [facility] BMI 2022-10-17 13:30:00 29.21 kg/m2 Universi ty of [facility] Branch Systolic blood 2022-04-23 16:00:00 120 mm[Hg] Univer sity of pressure [facility] Diastolic blood 2022-04-23 16:00:00 78 mm[Hg] Unive rsity of pressure [facility] Heart rate 2022-04-23 16:00:00 68 /min [facility] Respiratory rate 2022-04-23 16:00:00 14 /min [facility] Oxygen saturation in 2022-04-23 16:00:00 97 /min University of Arterial blood by [employer] Pulse oximetry Branch Body temperature 2022-04-23 13:21:00 36.5 Daniela [facility] Body height 2022-04-23 13:21:00 165.1 cm [facility] Body weight 2022-04-23 13:21:00 79.379 kg [facility] BMI 2022-04-23 13:21:00 29.12 kg/m2 [facility] Systolic blood 2022-04-12 15:10:00 138 mm[Hg] Univer [facility]ity [facility] Diastolic blood 2022-04-12 15:10:00 84 mm[Hg] Unive [facility] Heart rate 2022-04-12 15:10:00 90 /min [facility] Body temperature 2022-04-12 15:10:00 36.44 Daniela [facility] [place] [facility] Respiratory rate 2022-04-12 15:10:00 18 /min [facility] [place] [facility] Body height 2022-04-12 15:10:00 167.6 cm [facility] Body weight 2022-04-12 15:10:00 83.28 kg [facility] BMI 2022-04-12 15:10:00 29.63 kg/m2 [facility] Systolic blood 2022-01-01 07:34:00 120 mm[Hg] Univer [facility] Diastolic blood 2022-01-01 07:34:00 79 mm[Hg] Unive [facility] Heart rate 2022-01-01 07:34:00 85 /min [facility] Body temperature 2022-01-01 07:34:00 36.83 Daniela [facility] [place] [facility] Respiratory rate 2022-01-01 07:34:00 20 /min [facility] [place] [facility] Oxygen saturation in 2022-01-01 07:34:00 100 /min University of Arterial blood by [facility] Pulse oximetry Branch Body weight 2022-01-01 03:29:00 72.576 kg [facility] [place] [facility] BMI 2022-01-01 03:29:00 26.63 kg/m2 [facility] [place] [facility] Systolic blood 2019-08-13 21:19:00 129 mm[Hg] Univer [facility]ity of [facility] Diastolic blood 2019-08-13 21:19:00 72 mm[Hg] Unive rsity of pressure [facility] Heart rate 2019-08-13 21:19:00 73 /min [facility] [place] [facility] Respiratory rate 2019-08-13 21:19:00 19 /min Univ ersity of [facility] Body height 2019-08-13 21:19:00 165.1 cm Universi ty of [facility] Body weight 2019-08-13 21:19:00 74.254 kg [facility] [place] [facility] [place] BMI 2019-08-13 21:19:00 27.24 kg/m2 Universi ty of [facility] Oxygen saturation in 2019-08-13 21:19:00 97 /min University of Arterial blood by [facility] Pulse oximetry Branch Systolic blood 2019-06-18 17:06:00 132 mm[Hg] Univer sity of pressure [facility] Diastolic blood 2019-06-18 17:06:00 75 mm[Hg] Unive [facility]ity of [facility] [place] [facility] [place] Body height 2019-06-18 17:06:00 165.1 cm [facility] [place] [facility] [place] Body weight 2019-06-18 17:06:00 74.844 kg [facility] BMI 2019-06-18 17:06:00 27.46 kg/m2 [facility] Systolic blood 2019-02-21 19:52:00 127 mm[Hg] Univer [facility]ity of [facility] Diastolic blood 2019-02-21 19:52:00 76 mm[Hg] Unive rsity of pressure [facility] Branch Heart rate 2019-02-21 19:52:00 78 /min Universi ty of [facility] Body height 2019-02-21 19:52:00 165.1 cm [facility] Body weight 2019-02-21 19:52:00 76.204 kg [facility] BMI 2019-02-21 19:52:00 27.96 kg/m2 [facility] Procedures Procedure Date / Time Performing Clinician Source Performed NOTICE OF PRIVACY 2022-12-15 02:46:56 Doctor Unassigned, No [facility] PRACTICES [facility] Medical [place] CONSENT/REFUSAL FOR 2022-12-15 02:46:34 Doctor Unassigned, No Un [facility] DIAGNOSIS AND TREATMENT [facility] [place] COLONOSCOPY 2022-12-02 12:16:00 Vale Schwab o f [facility] COLONOSCOPY (ENDO) 2022-12-02 12:11:48 Oscar Mayorga [facility] COLONOSCOPY (ENDO) 2022-12-02 12:11:48 Oscar Mayorga [facility] DAY SURGERY - ADC 2022-12-02 05:01:00 Doctor Unassigned, No [facility] DISCLOSURE AND CONSENT, 2022-10-27 05:01:00 Doctor Unassigned, N o [facility] MEDICAL AND SURGICAL [facility] Medical [facility] PROCEDURES DISCLOSURE AND CONSENT, 2022-10-27 05:01:00 Doctor Unassigned, N o [facility] MEDICAL AND SURGICAL [facility] Medical [facility] PROCEDURES POCT URINALYSIS W/O 2022-10-17 00:00:00 Annie Rose [facility] SPECIFIC GRAVITY [facility] BI DIAGNOSTIC 2022-10-14 20:13:57 Rose Endless [facility] [place] TOMOSYNTHESIS BILATERAL [facility] RAPID INFLUENZA A/B 2022-04-23 14:55:00 Hannah Harley [facility] COVID-19 (ID NOW RAPID 2022-04-23 14:55:00 Hannah Harley [facility] TESTING) [facility] LIPASE 2022-04-23 14:23:00 Hannah Harley [facility] TROPONIN I 2022-04-23 14:23:00 Cherri Hannah [facility] COMP. METABOLIC PANEL 2022-04-23 14:23:00 Hannah Harley [facility] ([id number]) [facility] CBC WITH DIFF 2022-04-23 14:23:00 Hannah Harley [facility] URINALYSIS 2022-04-23 14:23:00 Cherri Hannah [facility] GC & CHLAMYDIA AMPLIFIED 2022-04-12 15:32:00 Annie Rose [facility] LAB ONLY PAP 2022-04-12 15:32:00 Annie Rose [facility] SMEAR-LIQUID BASED Medical Bran h GALV ONLY - VAGINAL 2022-04-12 15:32:00 Annie Rose [facility] PATHOGENS BY NUCLEIC Medical [facility] ACID TESTING HIGH RISK HPV-THIN PREP 2022-04-12 15:32:00 Annie Rose [facility] TRICHOMONAS AMPLIFIED 2022-04-12 15:32:00 Rose [facility] PAP SMEAR-LIQUID 2022-04-12 15:32:00 Annie Rose [facility] BASED- Medical [place] ASSIGNMENT OF BENEFITS 2022-04-12 14:53:06 Doctor Unassigned, No [facility] Name [facility] REFERRAL- 2022-04-06 05:01:00 Doctor Unassigned, No [facility] REQUEST/RESPONSE [facility] ABDOMEN PELVIS W 2022-01-01 06:00:15 Kirby Trevino [facility] CONTRAST [facility] LACTIC ACID WHOLE BLOOD 2022-01-01 05:49:00 Kirby Trevino [facility] COMP. METABOLIC PANEL 2022-01-01 05:42:00 Kirby Trevino [facility] ([id number]) [facility] CBC WITH DIFF 2022-01-01 05:42:00 Kirby Trevino [facility] XR CHEST 1 VW 2022-01-01 04:53:14 Kirby Trevino [facility] URINALYSIS 2022-01-01 04:46:00 Kirby Trevino [facility] RAPID INFLUENZA A/B 2022-01-01 04:46:00 Kirby Trevino [facility] COVID-19 (ID NOW RAPID 2022-01-01 03:35:00 Johanny Carrera [facility] TESTING) Medical Branch NOTICE OF PRIVACY 2022-01-01 03:16:16 Doctor Unassigned, No [facility] PRACTICES Name Medical Branch CONSENT/REFUSAL FOR 2022-01-01 03:15:43 [facility], [facility] Name Medical Branch AUTHORIZATION FOR 2020-05-02 06:01:00 Doctor Unassigned, No [facility] RELEASE OF PHI Name Medical Branch AUTHORIZATION FOR 2020-04-16 06:01:00 Doctor Unassigned, No [facility] RELEASE OF PHI Name Medical Branch DISCLOSURE AND CONSENT, 2019-06-18 06:01:00 Doctor Unassigned, N o [facility] MEDICAL AND SURGICAL Name Medical [facility] PROCEDURES Encounters Start End Encounter Admission Attending Care Care Encounter Source Date/Time Date/Time Type Type Clinicians Facility Department ID 2022-07-13 Outpatient Mayorga[facility] [id number] Common 08:12:01 Oscar [id number] [facility] 2022-04-13 Outpatient Mayorga, STLC [facility] [id number] Common 11:09:02 Oscar [id number] [facility] 2022-04-11 Outpatient Mayorga, STLC [facility] [id number] Common 11:45:01 Oscar [id number] [facility] 2022-03-23 Outpatient Mayorga, STLC [facility] [id number] Common 13:50:02 Oscar [id number] [facility] 2022-03-14 Outpatient Mayorga, STLC [facility] [id number] Common 08:30:03 Oscar [id number] [facility] 2022-12-14 2022-12-14 Emergency [id number] Univers 22:03:00 23:44:00 JOHANNY barton [facility] 2022-12-14 2022-12-14 Emergency [facility] [id number] Univers 22:03:00 23:44:00 Johanny K[place]KLAND [id number] [facility] [place] [id number] [facility] 084 Branch 2022-12-14 2022-12-14 Orders Doctor VERITO 1.2.840.114 [id number] Univers 00:00:00 00:00:00 Only Unassigned, RICHARD 350.1.13.10 ity of [place] [facility] 4.2.7.2.686 Anthony as [id number] [facility] 009 Branch 2022-12-02 2022-12-02 Outpatient R JOSSELIN [facility] DAR[facility] [id number] Univers 06:28:00 09:05:00 CAREFREE, [place] [facility] 2022-12-02 2022-12-02 [facility] 1.2.840.114 [id number] Univers 06:28:00 09:05:00 Encounter Vale KIRKLAND [id number] [place] SUR[place]ICAL [id number] [facility] 071 Branch 2022-12-02 2022-12-02 Surgery [facility] 1.2.840.114 [id number] Univers 07:20:00 08:27:00 Vale MARITA [id number] [place]ICAL [id number] [facility] 020 Branch 2022-12-02 2022-12-02 Orders Doctor SELLERS 1.2.840.114 [id number] Univers 00:00:00 00:00:00 Only Unassigned, RICHARD 350.1.13.10 ity of [place] [facility] 4.2.7.2.686 Anthony as [phone] [facility] 009 Branch 2022-12-01 2022-12-01 Telephone [facility] [id number] Univers 00:00:00 00:00:00 Vale KIRKLAND [id number] [place] [id number] [facility] 188 [facility] 2022-11-24 2022-11-[address] [facility] 1.2.840.114 [id number] Univers 00:00:00 00:00:00 Annie MARITA 350.1.13.10 i ty of [place] [id number] Nh dical NAL 134 [facility] 2022-10-27 2022-10-[address] [facility] 1.2.840.114 [id number] Univers 08:30:00 09:00:00 Visit Vale KIRKLAND 350.1.13.10 ity [facility] 4.[place] [id number] Nh dical NAL 188 [facility] 2022-10-27 2022-10-27 Outpatient R VLAE SCHWAB [facility] [id number] Univers 08:30:00 08:30:00 VALE SCHWAB [facility] 2022-10-25 2022-10-25 Telephone [facility] 1.2.840.114 [id number] [facility] 00:00:00 00:00:00 Annie KIRKLAND 350.1.13.10 i ty [facility] [place] [id number] Nh dical NAL 134 [facility] 2022-10-17 2022-10-17 Equipment Maint Tech 2, Adc Lab [facility] 1.2.840.114 [id number] [facility] 09:30:00 09:45:00 Visit Annie Rose 350.1.13.10 ity [facility] 4.2.[place] [id number] Nh dical NAL 353 [facility] 2022-10-17 2022-10-17 Outpatient R ROSE [facility] [id number] Univers 08:45:00 09:10:04 ANNIE boris [facility] 2022-10-17 2022-10-17 [address] [facility] [id number] [id number] [facility] 08:45:00 09:10:04 Visit Annie KIRKLAND 350.1.13.10 i ty [facility] 4.2.[place] [id number] Nh dical NAL 134 [facility] 2022-10-14 2022-10-14 Outpatient R [facility] [id number] Univers 14:09:28 23:59:00 ANNIE itboris [facility] 2022-10-14 2022-10-14 [facility] 1.2.840.114 [id number] Univers 14:09:28 23:59:00 Encounter Annie SPECIALTY 350.1.13.10 ity [place].2.[place] AT [id number] Nh merrill QUEEN CREEKBoris [address] [place] [address] 2022-07-14 2022-07-14 Outpatient R [facility]ESELECT [facility] [id number] Univers 10:30:00 10:30:00 ANNIE [facility] 2022-06-14 2022-06-14 [facility] 1.[facility].840.114 [id number] Univers 09:49:20 23:59:00 Encounter Annie Y HEALTH 350.1.13.10 ity of [place] [id number] [address] 2022-06-14 2022-06-14 [facility] 1.2.840.114 [id number] Univers 09:49:08 23:59:00 Encounter Annie Y HEALTH 350.1.13.10 ity of [place] [id number] [address] 2022-06-14 2022-06-14 Outpatient R [facility] [id number] Univers 00:00:00 23:59:00 ANNIE [facility] 2022-04-25 2022-04-25 Outpatient R TIGRES[facility]LECT [facility] [id number] Univers 08:15:00 08:15:00 PADMINI [facility] 2022-04-23 2022-04-23 Emergency [facility] [id number] Univers 07:21:00 10:29:00 , HANNAH [facility] 2022-04-23 2022-04-23 [facility] 1.2.840.114 [id number] Univers 07:21:00 10:29:00 , Hannah MARITA 350.1.13.10 i ty of [place]2.[place] [id number] [facility] 084 [place] 2022-04-13 2022-04-[address] [facility] 1.2.840.114 [id number] Univers 00:00:00 00:00:00 Annie KIRKLAND 350.1.13.10 i ty of [place] [id number] Nh dical NAL 134 [facility] 2022-04-13 2022-04-[address] [facility] 1.2.767.409 [id number] Univers 00:00:00 00:00:00 Management Annie KIRKLAND 350.1.13.10 ity of [place] [id number] Nh dical NAL 134 [facility] 2022-04-12 2022-04-12 Equipment Maint Tech 2, Adc Lab [facility] 1.2.840.114 [id number] [facility] 09:45:00 10:00:00 Visit Annie Rose 350.1.13.10 ity of [place] [id number] Nh dical NAL 353 [facility] 2022-04-12 2022-04-12 Outpatient R ROSESELECT [facility] [id number] [facility] 09:00:00 09:39:41 ANNIE ity of [facility] 2022-04-12 2022-04-[address] [facility] 1.2.358.846 [id number] [facility] 09:00:00 09:39:41 Visit Annie KIRKLAND 350.1.13.10 i ty of [place] [id number] Nh dical NAL 134 [facility] 2022-04-12 2022-04-12 Orders Doctor SELLERS 1.2.840.114 [id number] Univers 00:00:00 00:00:00 Only Unassigned, RICHARD 350.1.13.10 ity of [place] [facility] 4.2.7.2.686 Anthony as [id number] [facility] 009 [place] 2022-04-06 2022-04-06 Orders Doctor VERITO 1.2.840.114 [id number] Univers 00:00:00 00:00:00 Only Unassigned, RICHARD 350.1.13.10 ity of [place] [facility] 4.2.7.2.686 Anthony as [id number] [facility] 009 [place] 2022-04-06 2022-04-[address] [facility] 1.2.840.114 [id number] Univers 00:00:00 00:00:00 Annie KIRKLAND 350.1.13.10 i ty of [place] [id number] Nh dical NAL 134 [place] 2021-12-31 2022-01-[address] [facility] ERT [id number] Univers 22:26:00 02:43:00 KIRBY ity of [facility] 2021-12-31 2022-01-01 Emergency [facility] [id number] Univers 22:26:00 02:43:00 Kirby KIRKLAND 350.1.13.10 i ty of [place] DANIEL[place] [id number] [facility] 084 [place] 2021-12-31 2022-01-[address] [facility] ERT [id number] Univers 22:26:00 02:43:00 KIRBY ity of [facility] 2020-08-31 2020-08-31 Laboratory Lab, Adc Fam Pob I [facility] 1.2. 840.114 [id number] Univers 13:56:15 14:16:15 Only Ligia Nuñez 350.1.13.10 ity of [place] 4.2.7.2.686 Anthony as Professio [id number] Nh dical formerly [facility] 0[address] [place] Office [address] [employer] 2020-08-31 2020-08-31 Outpatient R ARI [facility] [id number] Univers 14:00:00 14:00:00 LIGIA ity of [facility] 2020-08-31 2020-08-31 Letter Doctor VERITO 1.2.840.114 [id number] Univers 00:00:00 00:00:00 (Out) Unassigned, RICHARD 350.1.13.10 ity of [place] [facility] 4.2.7.2.686 Anthony as [id number] [address] 2020-08-31 2020-08-31 Letter Doctor VERITO 1.2.840.114 [id number] Univers 00:00:00 00:00:00 (Out) Unassigned, RICHARD 350.1.13.10 ity of [place] [facility] 4.2.7.2.686 Anthony as [id number] [address] 2020-05-02 2020-05-02 Orders Doctor VERITO 1.2.840.114 [id number] Univers 00:00:00 00:00:00 Only Unassigned, RICHARD 350.1.13.10 ity of [place] [facility] 4.2.7.2.686 Anthony as [id number] [address] 2020-04-16 2020-04-16 Orders Doctor VERITO 1.2.840.114 [id number] Univers 00:00:00 00:00:00 Only Unassigned, RICHARD 350.1.13.10 ity of [place] [facility] 4.2.7.2.686 Anthony as [id number] [address] 2019-08-13 2019-08-13 Office [facility] 1.2.840.114 [id number] Univers 16:00:06 16:20:06 Visit Mickey Kirkland 350.1.13.10 ity of [place] [id number] Nh dical nal 059 [facility] 2019-08-13 2019-08-13 Outpatient R [facility] [id number] Univers 16:20:00 16:20:00 MICKEY gaspar [facility] 2019-08-13 2019-08-13 Outpatient R [facility] [id number] Univers 13:00:00 13:00:00 MICKEY gaspar [facility] 2019-06-20 2019-06-20 Telephone Beulah, [facility] 1.2.679.962 [id number] Univers 00:00:00 00:00:00 Mickey Kirkland 350.1.13.10 ity of [place].2.7.2.686 [place] [id number] [place] [id number] [facility] 2019-06-18 2019-06-18 Laboratory Visit, [facility] Nurse [facility] 1.2.84 0.114 [id number] Univers 10:51:22 11:47:03 Only 1, [facility] Cardio Fac Room [place] 350.1. 13.10 ity of Jeremy Aceved[place] 4.2.7.2.686 [place] Professio [id number] Nh dicdc nal 9 [facility] 2019-06-18 2019-06-18 Orders Doctor VERITO 1.2.840.114 [id number] Univers 00:00:00 00:00:00 Only Unassigned, RICHARD 350.1.13.10 ity of [place] [facility] 4.2.7.2.686 Anthony as [phone] [address] 2019-02-21 2019-02-21 Corporate Pilot, [facility] Cardio Fac [facility] 1. 2.840.114 [id number] Univers 13:52:07 14:52:07 Only 1, [facility] Cardio Fac Room [place] 350.1. 13.10 ity of [place] 4.2.7.2.686 [place] Professio [id number] [place] [id number] [facility] Results Test Description Test Time Test Comments Results Result Comments Source POCT URINALYSIS W/O SPECIFIC GRAVITY 2022-10-17 14:19:00 Test Item Value Reference Range Interpretation Comme nts POCT PH U (test code = 3254) 5 mg/dl 5-8 POCT U LEUK EST (test code = 3263) neg Negative - Negative POCT U NIT (test code = 3262) neg Negative - Negative POCT U PROT (test code = 3259) neg Negative - Negative POCT U GLU (test code = 3256) neg Negative - Negative POCT U KETONE (test code = 3258) neg Negative - Negative POCT U BLD (test code = 3257) neg Negative - Negative [facility] URINALYSIS W/O SPECIFIC [id number] 14:19:00 Test Item Value Reference Range Interpretation Comments POCT PH U (test code = 3254) 5 mg/dl 5-8 POCT U LEUK EST (test code = neg Negative - Negative 3263) POCT U NIT (test code = 3262) neg Negative - Negative POCT U PROT (test code = 3259) neg Negative - Negative POCT U GLU (test code = 3256) neg Negative - Negative POCT U KETONE (test code = 3258) neg Negative - Negative POCT U BLD (test code = 3257) neg Negative - [id number] 15:30:41 Test Item Value Reference Range Interpretation Comments WBC (test code = See_Comment [Automated 6990-2) message] The sy stem which generated this result transmitted reference range : 4.30 - 11.10 10*3/?L. The reference range was not used to interpret this result as normal/abnormal . RBC (test code = See_Comment [Automated 939-8) message] The sy stem which generated this result transmitted reference range : 3.93 - 5.25 10*6/?L. The reference range was not used to interpret this result as normal/abnormal . HGB (test code = 14.6 g/dL 11.6-15.0 718-7) HCT (test code = 41.4 % 35.7-45.2 4544-3) MCV (test code = 90.6 fL 80.6-95.5 787-2) MCH (test code = 31.9 pg 25.9-32.8 785-6) MCHC (test code = 35.3 g/dL 31.6-35.1 H 786-4) RDW-SD (test code = 39.0 fL 39.0-49.9 71475-4) RDW-CV (test code = 11.9 % 12.0-15.5 L 788-0) PLT (test code = See_Comment [Automated 777-3) message] The sy stem which generated this result transmitted reference range : 166 - 358 10*3/ ?L. The reference r michael was not used to interpret this result as normal/abnormal . MPV (test code = 10.4 fL 9.5-12.9 38843-2) NRBC/100 WBC (test See_Comment [Automat ed code = 3559408308) message] The system which generated this result transmitted reference range : 0.0 - 10.0 /100 WBCs. The refer ence range was not u sed to interpret th is result as normal/abnormal . NRBC x10^3 (test code See_Comment [Auto mated = 1188565390) message] The s ystem which generated this result transmitted reference range : 10*3/?L. The reference range was not used to interpret this result as normal/abnormal . SEG % (test code = 36 % 33-76 09661-7) BAND % (test code = 2 % 0-1 H 02211-1) LYMPH % (test code = 48 % 14-54 70943-4) REACT LYMPH % (test 2 % code = 9886335921) MONO % (test code = 5 % 0-4 H 57869-9) EOS % (test code = 6 % 0-3 H 33183-7) BASO % (test code = 1 % 0-1 21683-1) ANC (test code = 3.07 10*3/uL 1.88-7.09 753-4) Lab Interpretation Abnormal (test code = 90840-9) [facility] [id number] 14:57:37 Test Item Value Reference Interpretation Comments Range TROPONIN I (test 0.004 ng/mL See_Comment [Automated code = 0600687679) message] The system which generated this result transmitted reference range : <=0.034. The reference range was not used to interpret this result as normal/abnormal . YOANA (test code = Reference (Normal) YOANA) Range (defined by the 99th percentile reference limit): <= 0.034 ng/mL Note: Cardiac troponin begins to rise 3-4 hours after the onset of ischemia. Repeat in 4-6 hours if the sample was drawn within 3-4 hours of the onset of the symptom and found normal. Diagnosis of myocardial injury is made with acute changes in cTn concentrations with at least one serial sample above the 99th percentile upper reference limit (URL), taken together with the patient's clinical presentation. Biotin has been reported to cause a negative bias, interpret results relative to patient's use of biotin. Lab Interpretation Normal (test code = 80278-3) [facility]. METABOLIC PANEL ([id number])2022-04-23 14:46:17 Test Item Value Reference Range Interpretation Comments NA (test code = 140 mmol/L 135-145 4983849437) K (test code = 4.0 mmol/L 3.5-5.0 2826204862) CL (test code = 104 mmol/L 98-108 9156038359) CO2 TOTAL (test code = 25 mmol/L 23-31 3427138651) AGAP (test code = 2-16 4137395846) BUN (test code = 7 mg/dL 7-23 7303463478) GLUCOSE (test code = 106 mg/dL 70-110 1952661982) CREATININE (test code = 0.58 mg/dL 0.50-1.04 5856851510) TOTAL BILI (test code = 0.7 mg/dL 0.1-1.3 4326703970) CALCIUM (test code = 9.8 mg/dL 8.6-10.6 9550938780) T PROTEIN (test code = 8.5 g/dL 6.3-8.2 H 6876657882) ALBUMIN (test code = 5.1 g/dL 3.5-5.0 H 7480455193) ALK PHOS (test code = 77 U/L 34-122 7117592290) ALTv (test code = 170 U/L 5-35 H 1742-6) AST(SGOT) (test code = 114 U/L 13-40 H 9142003136) eGFR (test code = mL/min/1.73m2 6421149812) YOANA (test code = YOANA) Association of Glomerular Filtration Rate (GFR) and Staging of Kidney Disease* + --+ --+ ------+| GFR (mL/min/1.73 m2) ?| With Kidney Damage ?| ?Without Kidney Damage+ --------+ --------+ +| ?>90 ?| ?Stage one ?| ? Normal ?+ ---+ ---+ -------+| ?60-89 ?| ?Stage two ?| ? Decreased GFR ? + --+ --+ ------+| ?30-59 ?| ?Stage three ?| ? Stage three ? + --+ --+ ------+| ?15-29 ?| ?Stage four ? | ? Stage four ?+ ---+ ---+ -------+| ?<15 (or dialysis) ? ?| ?Stage five ? | ? Stage five ?+ ---+ ---+ -------+ *Each stage assumes the associated GFR level has been in effect for at least three months. ?Stages 1 to 5, with or without kidney disease, indicate chronic kidney disease. Notes: Determination of stages one and two (with eGFR >59mL/min/1.73 m2) requires estimation of kidney damage for at least three months as defined by structural or functional abnormalities of the kidney, manifested by either:Pathological abnormalities or Markers of kidney damage (including abnormalities in the composition of the blood or urine or abnormalities in imaging tests). Lab Interpretation Abnormal (test code = 24495-0) [facility] Test Item Value Reference Range Interpretation Comments LIPASE (test code = 4555233058) 136 U/L 0-220 Lab Interpretation (test code = Normal 37264-8) [facility] WITH [id number] 06:24:04 Test Item Value Reference Range Interpretation Comments WBC (test code = See_Comment [Automated 4990-2) message] The sy stem which generated this result transmitted reference range : 4.30 - 11.10 10*3/?L. The reference range was not used to interpret this result as normal/abnormal . RBC (test code = See_Comment [Automated 475-8) message] The sy stem which generated this result transmitted reference range : 3.93 - 5.25 10*6/?L. The reference range was not used to interpret this result as normal/abnormal . HGB (test code = 14.8 g/dL 11.6-15 718-7) HCT (test code = 42.4 % 35.7-45.2 4544-3) MCV (test code = 90.0 fL 80.6-95.5 787-2) MCH (test code = 31.4 pg 25.9-32.8 785-6) MCHC (test code = 34.9 g/dL 31.6-35.1 786-4) RDW-SD (test code = 39.4 fL 39-49.9 83302-5) RDW-CV (test code = 11.9 % 12-15.5 L 788-0) PLT (test code = See_Comment L [Automated 777-3) message] The sy stem which generated this result transmitted reference range : 166 - 358 10*3/ ?L. The reference r michael was not used to interpret this result as normal/abnormal . MPV (test code = 10.2 fL 9.5-12.9 38059-0) IPF % (test code = 2.3 % 1.3-7.7 Platelet count 6220384880) measured by fluorescence method. NRBC/100 WBC (test See_Comment [Automat ed code = 7093253650) message] The system which generated this result transmitted reference range : 0.0 - 10.0 /100 WBCs. The refer ence range was not u sed to interpret th is result as normal/abnormal . NRBC x10^3 (test code See_Comment [Auto mated = 7663462653) message] The s ystem which generated this result transmitted reference range : 10*3/?L. The reference range was not used to interpret this result as normal/abnormal . GRAN MAT (NEUT) % 75.9 % (test code = 770-8) IMM GRAN % (test code 0.50 % = 3248208190) LYMPH % (test code = 18.4 % 736-9) MONO % (test code = 4.3 % 5905-5) EOS % (test code = 0.3 % 713-8) BASO % (test code = 0.6 % 706-2) GRAN MAT x10^3(ANC) 6.75 10*3/uL 1.88-7.09 (test code = 6263593813) IMM GRAN x10^3 (test 0.04 10*3/uL 0-0.06 code = 2662771110) LYMPH x10^3 (test code 1.63 10*3/uL 1.32-3.29 = 731-0) MONO x10^3 (test code 0.38 10*3/uL 0.33-0.92 = 742-7) EOS x10^3 (test code = 0.03 10*3/uL 0.03-0.39 711-2) BASO x10^3 (test code 0.05 10*3/uL 0.01-0.07 = 704-7) Lab Interpretation Abnormal (test code = 49131-3) [facility]. METABOLIC PANEL ([id number])2022-01-01 06:08:43 Test Item Value Reference Range Interpretation Comments NA (test code = 138 mmol/L 135-145 6743031122) K (test code = 3.7 mmol/L 3.5-5 9041040474) CL (test code = 102 mmol/L 98-108 9502509608) CO2 TOTAL (test code = 22 mmol/L 23-31 L 3311785820) AGAP (test code = 2-16 2170478795) BUN (test code = 10 mg/dL 7-23 9651072545) GLUCOSE (test code = 113 mg/dL 70-110 H 0093976487) CREATININE (test code = 0.63 mg/dL 0.5-1.04 0103371115) TOTAL BILI (test code = 1.1 mg/dL 0.1-1.8 0036312428) CALCIUM (test code = 9.0 mg/dL 8.6-10.6 8937631571) T PROTEIN (test code = 8.2 g/dL 6.3-8.2 0643132585) ALBUMIN (test code = 4.7 g/dL 3.5-5 6238095016) ALK PHOS (test code = 105 U/L 34-122 9865867822) ALTv (test code = 69 U/L 5-35 H 1742-6) AST(SGOT) (test code = 52 U/L 13-40 H 6917523581) eGFR (test code = mL/min/1.73m2 5512524949) YOANA (test code = YOANA) Association of Glomerular Filtration Rate (GFR) and Staging of Kidney Disease* + --+ --+ ------+| GFR (mL/min/1.73 m2) ?| With Kidney Damage ?| ?Without Kidney Damage+ --------+ --------+ +| ?>90 ?| ?Stage one ?| ? Normal ?+ ---+ ---+ -------+| ?60-89 ?| ?Stage two ?| ? Decreased GFR ? + --+ --+ ------+| ?30-59 ?| ?Stage three ?| ? Stage three ? + --+ --+ ------+| ?15-29 ?| ?Stage four ? | ? Stage four ?+ ---+ ---+ -------+| ?<15 (or dialysis) ? ?| ?Stage five ? | ? Stage five ?+ ---+ ---+ -------+ *Each stage assumes the associated GFR level has been in effect for at least three months. ?Stages 1 to 5, with or without kidney disease, indicate chronic kidney disease. Notes: Determination of stages one and two (with eGFR >59mL/min/1.73 m2) requires estimation of kidney damage for at least three months as defined by structural or functional abnormalities of the kidney, manifested by either:Pathological abnormalities or Markers of kidney damage (including abnormalities in the composition of the blood or urine or abnormalities in imaging tests). Lab Interpretation Abnormal (test code = 12917-8) [facility]"
[2022-12-19 22:23] VITALS: TEMP 98.2; O2SAT 100
[2022-12-19 22:24] VITALS: BP 113/57
== END 2022-12-19 13:54 | disposition home or self-care (01) ==
LOC: ER 12:35
PROC: 0J940ZX Drainage of Right Neck Subcutaneous Tissue and Fascia, Open Approach, Diagnostic (ICD-10-PCS; principal; 2022-12-19)
DX: L02.11 Cutaneous abscess of neck (principal)
CPT/HCPCS: 87070; 87205; 99284; 10060; J2001; 87077; 87186

== ENCOUNTER 2025-03-28 09:42 | Day surgery (SDC) | payer SELFPAY ==
--- NOTE | 2025-03-26 14:30 | RAD REPORT ---
Procedure: Chest Pa And Lat (2 Views) HISTORY: Preop for knee surgery COMPARISON: 2019 FINDINGS: The lungs appear clear of acute infiltrate. No significant pleural effusion noted. The heart is normal size. IMPRESSION: No acute abnormality is displayed.
[2025-03-26 14:40] LABS: Absolute Lymphocytes (CBC) 4.0 K/uL (0.7-4.9); Hematocrit 41.0 % (36.0-45.0); Hemoglobin 14.6 g/dL (12.0-15.0); MCH 31.7 pg (27.0-35.0); MCHC 35.6 g/dL (32.0-36.0); MCV 89.0 fL (80-100); MPV 8.3 fL (7.6-11.3); Nucleated RBC Absolute Count 0.0 (0-0); Nucleated Red Blood Cells % 0.1 % (0-0); RBC Red Blood Cell Count 4.61 M/uL (3.86-4.86); White Blood Count 8.20 thou/uL (4.3-10.9)
[2025-03-26 15:01] LABS: PT Prothrombin Time 15.0 SECONDS (10-13.0); PTT, Activated Partial Thromb 35.1 SECONDS (27.2-37.4); Protime INR 1.34
[2025-03-26 15:03] LABS: Anion Gap 8.7 mEq/L (5.0-15.0); BUN Blood Urea Nitrogen 10.0 mg/dL (7-18); Glucose Level 95.0 mg/dL (74-106); Potassium 3.7 mEq/L (3.5-5.1)
[2025-03-28] MEDS: Ringers Lactate 1,000 ML IV ONE (10:10)
[2025-03-28] MEDS ORDERED: KETOROLAC 30 MG/ML INJ ONE (12:53)
[2025-03-28] MEDS ORDERED: MIDAZOLAM HCL 2 MG/2 ML INJ ONE (12:53)
[2025-03-28] MEDS ORDERED: FENTANYL CITR 100 MCG/2 ML ONE (12:53)
[2025-03-28] MEDS ORDERED: LIDOCAINE 1% MPF 5 ML VIAL ONE (12:53)
[2025-03-28] MEDS ORDERED: ONDANSETRON 4 MG/2 ML VIAL ONE (12:53)
[2025-03-28] MEDS: CEFAZOLIN SODIUM 2 GM/VIAL ONE (13:25)
[2025-03-28] MEDS: BUPIVACAINE 0.25% PF 10 ML VIAL ONE (13:44)
--- NOTE | 2025-03-28 14:06 | P.BOP ---
Preoperative diagnosis: Left knee medial meniscus tear Postoperative diagnosis: Same Primary procedure: Left knee partial medial meniscectomy Neurology Manager: NONE,NONE Estimated blood loss: 3 cc Specimen: None Findings: See dictation Anesthesia: General Complications: None Implants: None Fluids & blood products: Per anesthesia record Transferred to: Recovery Room Condition: Good
--- NOTE | 2025-03-28 14:16 | P.OP ---
Preoperative diagnosis: Left knee medial meniscus tear Postoperative diagnosis: Same Primary procedure: Left knee partial medial meniscectomy Anesthesia: General Estimated blood loss: 3 cc Specimen: None Findings: See dictation Operative Technique: Indication For Procedure: Cary is a 55-year-old female who presented to my clinic with signs, symptoms, and MRI findings consistent with a left knee medial meniscus tear and underlying left knee osteoarthritis. Given her pain and mechanical symptoms we elected to proceed with left knee arthroscopic partial medial meniscectomy. I discussed with the patient risks and benefits associated with operative and nonoperative treatment and she expressed understanding and elected to proceed with operative treatment. Description Of Procedure: After informed consent was obtained, the patient was identified in the preoperative holding area. The left lower extremity was marked. Patient was brought to the operating room transferred to the operative table in the supine fashion and placed under general anesthesia. The left lower extremity was then prepped and draped in usual sterile fashion. A time-out was initiated. The correct patient and procedure were performed and identified. The patient did receive preoperative prophylactic antibiotics. The left lower extremity was exsanguinated using an Esmarch and the tourniquet was inflated to 300 mmHg. Standard anterior medial and anterior lateral portals were created. The arthroscope was brought in via the anterolateral portal and a diagnostic arthroscopy was performed. The arthroscope was first part of the patellofemoral joint which was noted to have no significant chondromalacia changes of the trochlear groove or undersurface of the patella. The arthroscope was then brought on the both medial and lateral gutters and there were no loose bodies found within the gutters. The arthroscope was first brought into the medial compartment where the patient was noted to have a complex tear of the posterior horn and body of the medial meniscus. Using a meniscal biter and arthroscopic shaver, a partial medial meniscectomy was performed to smooth meniscal borders and the medial meniscus was stable to probe. There were no significant chondromalacia changes noted of the medial femoral condyle or medial tibial plateau. The arthroscope was then brought into the intercondylar notch where the patient was noted to have an intact ACL and PCL which were stable to probe. The arthroscope was then brought into no significant tear of the lateral meniscus. The meniscus was stable to probe. There were no significant chondromalacia changes of the lateral femoral condyle or lateral tibial plateau. Arthroscopic instruments were then removed without complication. Wounds were then irrigated thoroughly with normal saline. Portals were approximated using a 3-0 Monocryl. Sterile dressings were applied. The patient was awakened and transferred to PACU in stable condition. Postoperative Plan: The patient will be weightbearing as tolerated on the left lower extremity. She will follow-up in clinic 1 week for wound check and dressing change. We will follow the post meniscectomy protocol 2 weeks postoperatively. Complications: None Implants: None Fluids & blood products: Per anesthesia record Transferred to: Recovery Room Condition: Good
[2025-03-28] MEDS: MORPHINE 4 MG/ML SYR ONE (14:39)
[2025-03-28] MEDS: HYDROCODONE/APAP 7.5/325 MG TAB ONE (15:09)
[2025-03-28 15:36] VITALS: BP 128/71; TEMP 97.3; O2SAT 100
== END 2025-03-28 15:49 | disposition home or self-care (01) ==
LOC: OR 09:42
PROVIDERS: ATTEND Orthopaedic Surgery Sports Medicine
PROC: 0SBD4ZZ Excision of Left Knee Joint, Percutaneous Endoscopic Approach (ICD-10-PCS; principal; 2025-03-28 11:30)
DX: S83.242A Other tear of medial meniscus, current injury, left knee, initial encounter (principal); M17.12 Unilateral primary osteoarthritis, left knee
CPT/HCPCS: 29881; 93005; 85025; 80048; 36415; 85610; 85730; 71046; J1885; J2704; J2003; J2250; J3010; J2405; J7120